=== PATIENT | male | born 1945 | race Caucasian/White ===

== ENCOUNTER 2018-06-23 16:46 | Inpatient (IN) ==
--- NOTE | 2018-06-23 18:07 | XR ---
EXAM DATE: 06/23/2018 6:02 PM EST AGE/SEX: 72 years / Male INDICATIONS: Congestive heart failure. CLINICAL DATA: This is the patient's initial encounter. Patient reports that signs and symptoms have been present for 1 day and indicates a pain score of Nonresponsive. MEDICAL/SURGICAL HISTORY: Congestive heart failure. . Pacemaker. COMPARISON: . FINDINGS: There is a pacing device seen in the left chest. The heart size is within normal limits. The lungs ar e grossly clear. CONCLUSION: No acute cardiopulmonary process. Electronically signed by: Mundo Naranjo MD 06/23/2018 6:05 PM EST
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
[2018-06-23 18:42] LABS: Baso % (Auto) 0.4 % (0.0-2.0); Eos # (Auto) 0.1 th/mm3 (0.0-0.4); Eos % (Auto) 1.5 % (0.0-4.0); Hematocrit 42.6 % (39.0-51.0); Hemoglobin 14.5 gm/dL (13.0-17.0); Lymph # (Auto) 0.7 th/mm3 (1.0-4.8); Lymph % (Auto) 7.3 % (9.0-44.0); Mean Corpuscular Hemoglobin 31.8 pg (27.0-34.0); Mean Corpuscular Volume 93.6 fL (80.0-100.0); Mean Platelet Volume 9.3 fL (7.0-11.0); Mono # (Auto) 1.1 th/mm3 (0.0-0.9); Mono % (Auto) 11.9 % (0.0-8.0); Neut # (Auto) 7.2 th/mm3 (1.8-7.7); Neut % (Auto) 78.9 % (16.0-70.0); Platelet Count 245 th/mm3 (150-450); Red Blood Count 4.55 mil/mm3 (4.50-5.90); White Blood Count 9.2 th/mm3 (4.0-11.0)
[2018-06-23 18:48] LABS: Amphetamine Screen,Urine Neg (Neg); Barbiturate Screen,Urine Neg (Neg); Cannabinoid Screen,Urine Neg (Neg); Cocaine Screen,Urine Neg (Neg)
[2018-06-23 19:03] LABS: Anion Gap 6 meq/L (5-15); Aspartate Aminotransferase 31 U/L (15-37); Blood Urea Nitrogen 24 mg/dL (7-18); Calcium 9.1 mg/dL (8.5-10.1); Carbon Dioxide 28.7 meq/L (21.0-32.0); Chloride 104 meq/L (98-107); Glomerular Filtration Rate 69 mL/min (>89); Glucose,Random 88 mg/dL (74-106); Magnesium 1.6 mg/dL (1.5-2.5); Potassium 4.4 meq/L (3.5-5.1); Sodium 139 meq/L (136-145)
[2018-06-23 19:04] LABS: Alanine Aminotransferase 29 U/L (12-78)
[2018-06-23 19:12] LABS: Opiate Screen,Urine Neg (Neg)
[2018-06-23 19:18] LABS: Alkaline Phosphatase 65 U/L (45-117); Digoxin 0.9 ng/mL (0.8-2.0); Total Protein 7.8 g/dL (6.4-8.2)
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
--- NOTE | 2018-06-24 14:01 | ECG ---
Date Performed: 06/23/2018 Time Performed: 18:11:23 PTAGE: 72 years EKG: Extremely poor quality tracing to the point that the underlying rhythm cannot be determined but it is possibly atrial fibrillation. The patient has marked right axis deviation and this may be limb lead reversal but i cannot exclude an anterolateral wall NE that is possibly acute as there is r esidual ST elevation. Repeat tracing and clinical correlation will be extremely important again to sp ecifically exclude acute ST segment elevation infarction ABNORMAL ECG NO PREVIOUS TRACING DOCTOR: Olga Ascencio Interpretating Date/Time 06/24/2018 14:00:53
[2018-06-24 15:19] LABS: Bacteria,Urine Few /hpf; Bilirubin,Urine Negative (Negative); Calcium Oxalate Crystals,Urine Occasional /hpf; Clarity,Urine Hazy (Clear); Color,Urine Amber (Yellw/Straw); Glucose,Urine (UA) Negative (Negative); Leukocyte Esterase,Urine Negative (Negative); Mucus,Urine Few /lpf (Occasional); Nitrite,Urine Negative (Negative); Specific Gravity,Urine 1.023 (1.002-1.035); Squamous Epithelial Cell,Urine <1 /hpf (0-5)
[2018-06-24] MEDS ORDERED: Haloperidol 5 MG Tablet PO ONE (19:44)
[2018-06-24] MEDS: Digoxin 125 MCG Tablet PO SCH (20:36)
[2018-06-24] MEDS: Rivaroxaban 20 MG Tablet PO SCH (20:37)
[2018-06-24] MEDS: Budesonide-Formoterol 160/4.5 MCG 6 GM Inhaler INH SCH (21:58)
[2018-06-25] MEDS: Rivaroxaban 20 MG Tablet PO SCH (08:18)
[2018-06-25] MEDS: Digoxin 125 MCG Tablet PO SCH (08:18)
[2018-06-25] MEDS: Budesonide-Formoterol 160/4.5 MCG 6 GM Inhaler INH SCH ×2 (08:18→21:58)
[2018-06-25] MEDS: LORazepam 0.5 MG Tablet PO PRN (14:21)
[2018-06-25] MEDS: QUEtiapine 25 MG Tablet PO SCH (14:21)
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
[2018-06-26 07:48] LABS: Baso % (Auto) 0.6 % (0.0-2.0); Eos # (Auto) 0.4 th/mm3 (0.0-0.4); Eos % (Auto) 5.6 % (0.0-4.0); Hematocrit 41.5 % (39.0-51.0); Hemoglobin 13.8 gm/dL (13.0-17.0); Lymph # (Auto) 0.7 th/mm3 (1.0-4.8); Lymph % (Auto) 9.9 % (9.0-44.0); Mean Corpuscular HGB Conc 33.3 % (32.0-36.0); Mean Corpuscular Hemoglobin 30.8 pg (27.0-34.0); Mean Corpuscular Volume 92.5 fL (80.0-100.0); Mean Platelet Volume 8.6 fL (7.0-11.0); Mono # (Auto) 0.9 th/mm3 (0.0-0.9); Mono % (Auto) 13.1 % (0.0-8.0); Neut # (Auto) 5.1 th/mm3 (1.8-7.7); Neut % (Auto) 70.8 % (16.0-70.0); Platelet Count 233 th/mm3 (150-450); Red Blood Count 4.48 mil/mm3 (4.50-5.90); Red Cell Distribution Width 13.9 % (11.6-17.2); White Blood Count 7.2 th/mm3 (4.0-11.0)
--- NOTE | 2018-06-26 08:00 | P.PNPSY ---
Subjective Remarks: Patient seen for follow-up, chart reviewed. Discussion with nursing staff reported that patient was upset yesterday because he wanted to walk by himself which started his agitation and receive ETO yesterday afternoon but was in good behavioral control thereafter. Patient slept last night. Patient was found lying hospital bed but was awake and able to engage in interview stating he is feeling "fine" continues to be confused alert and oriented only to person. Patient denies any physical complaints at this time, reports eating and drinking well but did report having some loose stools yesterday. Patient denies any depressed mood denies any SI or HI at this time. Review of Systems All other systems reviewed negative except as stated in HPI Mental Status Examination Appearance: Appropriate Consciousness: Alert Orientation: Person Motor Activity: Other (Only in bed) Speech: Other (Significant problems with word finding) Language: Other Fund of Knowledge: Poor (Diminished) Attention and Concentration: Inadequate Memory: Impaired Mood: Appropriate Affect: Appropriate Thought Process & Associations: Other ([place]) Thought Content: Appropriate Hallucination Type: None Delusion Type: None Suicidal Ideation: No Suicidal Plan: No Suicidal Intention: No Homicidal Ideation: No Homicidal Plan: No Homicidal Intention: No Insight: Poor Judgment: Poor Assessment and Plan - Assessment (1) Dementia with behavioral disturbance Code(s): F03.91 - Unspecified dementia with behavioral disturbance Status: Acute - Plan Plan: Patient continued with concrete responses, continue with baseline confusion secondary to neurocognitive deficits. Patient did have one episode of agitation yesterday afternoon after wanting to be able to walk by himself without assistance but was managed with ETO and no behavioral disturbances since. We will continue current treatment. We will continue to monitor mood and behavior. Discharge planning in progress. Justification for Continued Inpatient Stay: At risk of further decompensation at lower level care. (1) Dementia with behavioral disturbance Qualifiers: Dementia type: unspecified type Qualified Code(s): F03.91 - Unspecified dementia with behavioral disturbance
[2018-06-26] MEDS: QUEtiapine 25 MG Tablet PO SCH ×2 (08:10→11:47)
[2018-06-26] MEDS: Budesonide-Formoterol 160/4.5 MCG 6 GM Inhaler INH SCH ×2 (08:10→20:19)
[2018-06-26] MEDS: Rivaroxaban 20 MG Tablet PO SCH (08:10)
[2018-06-26] MEDS: Digoxin 125 MCG Tablet PO SCH (08:10)
[2018-06-26 08:23] LABS: Alanine Aminotransferase 25 U/L (12-78); Albumin 2.5 g/dL (3.4-5.0); Anion Gap 7 meq/L (5-15); Aspartate Aminotransferase 25 U/L (15-37); Blood Urea Nitrogen 16 mg/dL (7-18); Calcium 8.8 mg/dL (8.5-10.1); Carbon Dioxide 30.2 meq/L (21.0-32.0); Chloride 106 meq/L (98-107); Glomerular Filtration Rate Greater Than 89 mL/min (>89); Glucose,Random 79 mg/dL (74-106); Sodium 143 meq/L (136-145)
[2018-06-26 08:36] LABS: Alkaline Phosphatase 54 U/L (45-117); Digoxin 0.7 ng/mL (0.8-2.0); Total Protein 6.8 g/dL (6.4-8.2)
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
[2018-06-27] MEDS: Rivaroxaban 20 MG Tablet PO SCH (09:01)
[2018-06-27] MEDS: Digoxin 125 MCG Tablet PO SCH (09:01)
[2018-06-27] MEDS: QUEtiapine 25 MG Tablet PO SCH ×2 (10:07→13:33)
[2018-06-27] MEDS: Budesonide-Formoterol 160/4.5 MCG 6 GM Inhaler INH SCH ×2 (10:07→20:26)
--- NOTE | 2018-06-27 21:09 | P.PNPSY ---
Subjective Remarks: Patient seen for follow-up, chart reviewed. Discussion with nursing staff reported that patient behavior disturbances, had a compliant medications, patient was found lying in hospital bed B, cooperative. Casual clothing. He states that he "do not think I slept too confused but is able to recall that 3 years ago he had a left hip fracture he states that he constantly has left hip pain. Patient reports his mood is "okay", requests assistance to shave today. Review of Systems All other systems reviewed negative except as stated in HPI Mental Status Examination Appearance: Appropriate Consciousness: Alert Orientation: Person Motor Activity: Other (Only in bed) Speech: Other (Significant problems with word finding) Language: Other Fund of Knowledge: Poor (Diminished) Attention and Concentration: Inadequate Memory: Impaired Mood: Appropriate Affect: Appropriate Thought Process & Associations: Other ([place]) Thought Content: Appropriate Hallucination Type: None Delusion Type: None Suicidal Ideation: No Suicidal Plan: No Suicidal Intention: No Homicidal Ideation: No Homicidal Plan: No Homicidal Intention: No Insight: Poor Judgment: Poor Assessment and Plan - Assessment (1) Dementia with behavioral disturbance Code(s): F03.91 - Unspecified dementia with behavioral disturbance Status: Acute - Plan Plan: Patient is tolerating medications well, no behavioral disturbances since admission cooperative with staff. Patient continues with baseline confusion, is reporting chronic left hip pain secondary from left hip fracture years ago. Continue current treatment. Continue to monitor mood and behavior. Discharge planning in progress. Justification for Continued Inpatient Stay: At risk of further decompensation at lower level care. (1) Dementia with behavioral disturbance Qualifiers: Dementia type: unspecified type Qualified Code(s): F03.91 - Unspecified dementia with behavioral disturbance
[2018-06-28] MEDS: Digoxin 125 MCG Tablet PO SCH (08:14)
[2018-06-28] MEDS: Rivaroxaban 20 MG Tablet PO SCH (08:14)
[2018-06-28] MEDS: QUEtiapine 25 MG Tablet PO SCH ×2 (08:14→14:33)
[2018-06-28] MEDS: Acetaminophen 325 MG Tablet PO PRN (08:16)
--- NOTE | 2018-06-28 08:53 | P.PNIM ---
Subjective Interval history: Follow-up altered mental status, dementia, A. fib, heart failure, COPD, and generalized weakness. Patient seen and examined sitting on the side of the bed, eating breakfast. Patient complaint of pain on his left leg, left from left hip going down to his knee. Patient states that he had surgery in both of his knee. Patient states that he cannot walk fast due to the pain on left hip. States that Tylenol helps. Patient denies any headache or dizziness, denies any abdominal pain, nausea, vomiting, diarrhea or constipation. Patient denies any fever or chills. Nurse reported no acute events overnight. Physical Exam Vital signs: Vital Signs 06/27/18 18:00 06/27/18 21:06 06/28/18 05:22 Temperature 97.8 F 97.6 F Pulse Rate 55 L 87 Respiratory Rate 15 21 17 Blood Pressure 107/59 L 115/70 Pulse Oximetry 96 95 Intake & Output 06/27/18 06/28/18 06/28/18 18:59 06:59 18:59 Intake Total 120 / 120 60 / 60 Balance 120 / 120 60 / 60 Intake: Oral 120 / 120 60 / 60 Other: # Voids 2 Date of Last Bowel Movement 06/26/18 06/26/18 Narrative: GENERAL: Well-developed, well-nourished, adult male, sitting in the side of bed, in no apparent distress SKIN: Warm and dry. Bilateral knee surgical incision scar HEAD: Atraumatic. Normocephalic. EYES: Pupils equal and round. No scleral icterus. No injection or drainage. ENT: No nasal bleeding or discharge. Mucous membranes pink and moist. NECK: Trachea midline. No JVD. CARDIOVASCULAR: Regular rate and rhythm. Left upper chest pacemaker/ defibrillator in place RESPIRATORY: No accessory muscle use. Clear to auscultation. Breath sounds equal bilaterally. GASTROINTESTINAL: Abdomen flat, soft, non-tender, nondistended. Hepatic and splenic margins not palpable. MUSCULOSKELETAL: Extremities without clubbing, cyanosis, or edema. No obvious deformities. NEUROLOGICAL: Awake and alert and oriented x1. No obvious cranial nerve deficits. Generalized weakness moving all 4 extremities. Normal speech. PSYCHIATRIC: Flat mood and affect; insight and judgment poor. Results - Labs CBC & Chem 7: 06/26/18 07:27 06/26/18 07:27 Assessment and Plan - Assessment (1) Heart failure Code(s): I50.9 - Heart failure, unspecified Status: Acute (2) Dementia with behavioral disturbance Code(s): F03.91 - Unspecified dementia with behavioral disturbance Status: Acute (3) Hypertension Code(s): I10 - Essential (primary) hypertension Status: Acute (4) COPD (chronic obstructive pulmonary disease) Code(s): J44.9 - Chronic obstructive pulmonary disease, unspecified Status: Acute (5) Atherosclerotic heart disease Code(s): I25.10 - Atherosclerotic heart disease of [place] coronary artery without angina pectoris Status: Acute - Plan This patient is a 72 years old male with past medical history of dementia A. fib, altered mental status, atherosclerotic heart disease, COPD, heart failure, hypertension, and muscle weakness. Patient presented to the emergency room under a Ordonez act and was released at the ED. Patient was admitted to the psychiatric unit for treatment and management. Altered mental Status Cognitive impairment -Chest x-ray negative -Urinalysis negative -Likely related to dementia with behavioral disturbance -TSH 1.36 -monitor mental status Dementia with behavioral disturbance Combative Unspecified dementia with behavioral disturbance, Acute on chronic -likely due to failure in taking medications/ family request to cut down on doses -Management with Psychiatric team -continue Lexapro and Seroquel, and prn Ativan -Patient is calm and cooperative, monitor mental status Atherosclerotic heart disease, without angina pectoris Heart failure Atrial fibrillation Heart failure, unspecified, Acute on chronic -No chest pain no shortness of breath -Pacemaker/defibrillator in place -Continue digoxin, losartan, metoprolol, and Xarelto -Monitor blood pressure and heart rate -Monitor CBC, dig level and BMP -Rate controlled, dig level 0.7, monitor Hypertension Essential (primary) hypertension, Acute on chronic -Blood pressure labile, in the low side -Continue losartan , decrease metoprolol dose -Add hold parameters -Monitor blood pressure, adjust medication as needed COPD (chronic obstructive pulmonary disease) Chronic obstructive pulmonary disease, unspecified -No shortness of breath no wheezes -Continue DuoNeb treatment -Monitor respiratory status Generalized weakness Hypoalbuminemia -Consult PT rehab for eval and treat -Add Ensure twice daily -Encourage increase p.o. intake Osteoarthritis History of bilateral knee surgery Left hip pain -Obtain left hip x-ray, rule out acute process -Add as needed Tylenol for pain -Add naproxen times 5 days -Physical therapy/rehab per protocol DVT prophylaxis: Continue Xarelto Thank you for your consultation, we will continue to follow patient accordingly. Code Status: full code Discussed Condition With: patient and nurse (2) Dementia with behavioral disturbance Qualifiers: Dementia type: unspecified type Qualified Code(s): F03.91 - Unspecified dementia with behavioral disturbance
--- NOTE | 2018-06-28 10:34 | XR ---
EXAM DATE: 06/28/2018 10:24 AM EST AGE/SEX: 72 years / Male INDICATIONS: Hip pain. CLINICAL DATA: This is the patient's initial encounter. Patient reports that signs and symptoms have been present for > 1 year and indicates a pain score of 7/10. MEDICAL/SURGICAL HISTORY: . Prior fracture. . Hip replacement, bilateral. COMPARISON: No prior exams available for comparison. FINDINGS: There is a short intramedullary ivan seen at the proximal left femur. There is a screw seen extending through the intramedullary ivan and into the left femoral head and neck region. This appears to extend through the medial aspect of the femoral head. The femoral head appears significantly reduced in siz e. There is chronic degenerative change. There is hypertrophic change seen around the hip joint espec ially around the lesser trochanter. An acute fracture is not seen. There is narrowing of the hip join t superiorly and medially. 3 metallic densities are seen over the prostate presumably related to beatriz er seeds. Vascular calcifications are seen. CONCLUSION: Severe arthritic change at the left hip joint with remodeling and reduction size of the femoral head. The patient has underwent ORIF with a compression screw seen through the femoral neck and head. This appears to extend through the medial cortex of the femoral head. Electronically signed by: Mundo Naranjo MD 06/28/2018 10:32 AM EST
--- NOTE | 2018-06-28 12:02 | P.PNPSY ---
Subjective Remarks: Patient seen and examined in weekend coverage for Dr. Trevino. Chart reviewed. Case discussed with nursing staff who reports patient has presented no behavioral problem. On my examination today, the patient is wandering around with a diaper. He is oriented to person only. He denies any SI, HI or AVH. No side effects from medications. Complains of left hip pain, which nurse assures me is chronic. No other physical complaints. Vital Signs Temp Pulse Resp BP Pulse Ox 06/28/18 05:22 97.6 F 87 17 115/70 95 06/27/18 21:06 21 06/27/18 18:00 97.8 F 55 L 15 107/59 L 96 Intake and Output 06/27/18 06/28/18 06/28/18 22:59 06:59 14:59 Intake Total 60 / 60 0 / 0 Balance 60 / 60 0 / 0 Intake: Oral 60 / 60 0 / 0 Other: # Voids 2 Date of Last Bowel Movement 06/26/18 Labs reviewed. Review of Systems unobtainable due to mental condition Mental Status Examination Appearance: Appropriate Consciousness: Alert Orientation: Person Motor Activity: Other (No motor abnormalities noted) Speech: Unremarkable Language: Other (Word finding difficulties. Poverty of speech) Fund of Knowledge: Poor Attention and Concentration: Inadequate Memory: Impaired Mood: Appropriate Affect: Appropriate Thought Process & Associations: Other ([place]) Thought Content: Other (Poverty of thought) Hallucination Type: None Delusion Type: None Suicidal Ideation: No Suicidal Plan: No Suicidal Intention: No Homicidal Ideation: No Homicidal Plan: No Homicidal Intention: No Insight: Poor Judgment: Poor Assessment and Plan - Assessment (1) Dementia with behavioral disturbance Code(s): F03.91 - Unspecified dementia with behavioral disturbance Status: Acute - Plan Plan: Continue Seroquel and Lexapro as ordered. Continue to monitor on the inpatient unit. Hospitalist input noted and appreciated. Continue other medications and care as ordered. Justification for Continued Inpatient Stay: Risk for decompensation Discharge Planning: Per Dr. Trevino (1) Dementia with behavioral disturbance Qualifiers: Dementia type: unspecified type Qualified Code(s): F03.91 - Unspecified dementia with behavioral disturbance
[2018-06-28] MEDS: Budesonide-Formoterol 160/4.5 MCG 6 GM Inhaler INH SCH ×2 (14:33→20:11)
[2018-06-29] MEDS: Digoxin 125 MCG Tablet PO SCH (08:01)
[2018-06-29] MEDS: Rivaroxaban 20 MG Tablet PO SCH (08:02)
[2018-06-29] MEDS: Budesonide-Formoterol 160/4.5 MCG 6 GM Inhaler INH SCH ×2 (08:03→20:36)
[2018-06-29] MEDS: QUEtiapine 25 MG Tablet PO SCH ×2 (08:05→13:08)
--- NOTE | 2018-06-29 09:36 | P.PNIM ---
Subjective Interval history: Follow-up altered mental status, dementia, A. fib, heart failure, COPD, and generalized weakness. Patient seen and examined sitting on the side of the bed, nurse at bedside. Patient answers to questions with flights of thoughts. Some conversations does not make sense. Patient denies any pain or shortness of breath, denies any headache or dizziness, denies any abdominal pain, nausea, vomiting, diarrhea or constipation not make sense. However patient complaint no bowel movement today or yesterday. Discussed with nursing to give stool softeners. Patient denies any fever or chills. Nurse denies any acute complaints or issues overnight. Physical Exam Vital signs: Vital Signs 06/28/18 19:16 06/29/18 06:00 Temperature 98.7 F 98.4 F Pulse Rate 75 55 L Respiratory Rate 18 18 Blood Pressure 92/66 L 99/63 L Pulse Oximetry 94 L 93 L Intake & Output 06/28/18 06/29/18 06/29/18 18:59 06:59 18:59 Intake Total 360 / 360 240 / 240 Balance 360 / 360 240 / 240 Intake: Oral 360 / 360 240 / 240 Other: # Voids 3 4 Date of Last Bowel Movement 06/28/18 06/28/18 Narrative: GENERAL: Well-developed, well-nourished, adult male, sitting in the side of bed, in no apparent distress SKIN: Warm and dry. Bilateral knee surgical incision scar, left hip surgical scar healed well HEAD: Atraumatic. Normocephalic. EYES: Pupils equal and round. No scleral icterus. No injection or drainage. ENT: No nasal bleeding or discharge. Mucous membranes pink and moist. NECK: Trachea midline. No JVD. CARDIOVASCULAR: Regular rate and rhythm. Left upper chest pacemaker/ defibrillator in place RESPIRATORY: No accessory muscle use. Clear to auscultation. Breath sounds equal bilaterally. GASTROINTESTINAL: Abdomen flat, soft, non-tender, nondistended. Hepatic and splenic margins not palpable. MUSCULOSKELETAL: Extremities without clubbing, cyanosis, or edema. No obvious deformities. NEUROLOGICAL: Awake and alert and oriented x1. No obvious cranial nerve deficits. Generalized weakness moving all 4 extremities. Normal speech. PSYCHIATRIC: Flat mood and affect; insight and judgment poor. Results - Labs CBC & Chem 7: 06/26/18 07:27 06/26/18 07:27 - Imaging Impressions Hip X-Ray 06/28/18 00:00 CONCLUSION: Severe arthritic change at the left hip joint with remodeling and reduction size of the femoral head. The patient has underwent ORIF with a compression screw seen through the femoral neck and head. This appears to extend through the medial cortex of the femoral head. Assessment and Plan - Assessment (1) Heart failure Code(s): I50.9 - Heart failure, unspecified Status: Acute (2) Dementia with behavioral disturbance Code(s): F03.91 - Unspecified dementia with behavioral disturbance Status: Acute (3) Hypertension Code(s): I10 - Essential (primary) hypertension Status: Acute (4) COPD (chronic obstructive pulmonary disease) Code(s): J44.9 - Chronic obstructive pulmonary disease, unspecified Status: Acute (5) Atherosclerotic heart disease Code(s): I25.10 - Atherosclerotic heart disease of [place] coronary artery without angina pectoris Status: Acute - Plan This patient is a 72 years old male with past medical history of dementia A. fib, altered mental status, atherosclerotic heart disease, COPD, heart failure, hypertension, and muscle weakness. Patient presented to the emergency room under a Ordonez act and was released at the ED. Patient was admitted to the psychiatric unit for treatment and management. Altered mental Status Cognitive impairment -Chest x-ray negative -Urinalysis negative -Likely related to dementia with behavioral disturbance -TSH 1.36 -monitor mental status Dementia with behavioral disturbance Combative Unspecified dementia with behavioral disturbance, Acute on chronic -likely due to failure in taking medications/ family request to cut down on doses -Management with Psychiatric team -continue Lexapro and Seroquel, and prn Ativan -Patient is calm and cooperative, monitor mental status Atherosclerotic heart disease, without angina pectoris Heart failure Atrial fibrillation Heart failure, unspecified, Acute on chronic -No chest pain no shortness of breath -Pacemaker/defibrillator in place -Continue digoxin, losartan, metoprolol, and Xarelto -Monitor blood pressure and heart rate -Monitor CBC, dig level and BMP -Rate controlled, dig level 0.7, monitor Hypertension Essential (primary) hypertension, Acute on chronic -Blood pressure labile, in the low side -Continue losartan , decrease metoprolol dose again with hold parameters -Add hold parameters -Monitor blood pressure, adjust medication as needed COPD (chronic obstructive pulmonary disease) Chronic obstructive pulmonary disease, unspecified -No shortness of breath no wheezes -Continue DuoNeb treatment -Monitor respiratory status Generalized weakness Hypoalbuminemia -Consult PT rehab for eval and treat -Add Ensure twice daily -Encourage increase p.o. intake Osteoarthritis History of bilateral knee surgery Left hip pain -Obtain left hip x-ray, rule out acute process -Add as needed Tylenol for pain -Did not order naproxen due to anticoagulation, and risk of GI bleed, will use Tylenol at this time -Physical therapy/rehab per protocol Constipation -Add stool softener, senna twice daily -Add PRN laxatives -Encourage increase fluid intake -Monitor response DVT prophylaxis: Continue Xarelto Thank you for your consultation, we will continue to follow patient accordingly. Code Status: Full code Discussed Condition With: Patient and nurse (2) Dementia with behavioral disturbance Qualifiers: Dementia type: unspecified type Qualified Code(s): F03.91 - Unspecified dementia with behavioral disturbance
--- NOTE | 2018-06-29 12:31 | P.PNPSY ---
Subjective Remarks: Patient seen and examined with nurse in weekend coverage for Dr. Trevino. Chart reviewed. Case discussed with nursing staff who reports patient has had diarrhea and has been difficult to redirect. Diarrhea may be related to treatment for constipation, but I have asked nurse to send stool for C. difficile to rule this out. On my examination today, the patient is irritable. He is ambulating around the unit with his walker. He remains confused. Speech is rambling. No evident medication side effects. No physical complaints. Vital Signs Temp Pulse Resp BP Pulse Ox 06/29/18 06:00 98.4 F 55 L 18 99/63 L 93 L 06/28/18 19:16 98.7 F 75 18 92/66 L 94 L Intake and Output 06/28/18 06/29/18 06/29/18 22:59 06:59 14:59 Intake Total 600 / 600 Balance 600 / 600 Intake: Oral 600 / 600 Other: # Voids 2 4 Date of Last Bowel Movement 06/28/18 06/28/18 Labs reviewed Review of Systems unobtainable due to mental condition Mental Status Examination Appearance: Appropriate Consciousness: Alert Orientation: Person Motor Activity: Other (No abnormal motor movements noted) Speech: Unremarkable Language: Other (Word finding difficulties. Poverty of speech) Fund of Knowledge: Poor Attention and Concentration: Inadequate Memory: Impaired Mood: Irritable Affect: Irritable Thought Process & Associations: Other ([place]) Thought Content: Other (Poverty of thought) Hallucination Type: None Delusion Type: None Suicidal Ideation: No Homicidal Ideation: No Insight: Poor Judgment: Poor Assessment and Plan - Assessment (1) Dementia with behavioral disturbance Code(s): F03.91 - Unspecified dementia with behavioral disturbance Status: Acute - Plan Plan: To consider further titration of patient's Seroquel to target irritability in the setting of dementia. I am loath to do so now however because patient's blood pressure is low, and I do not wish to precipitate syncope or fall. Continue to monitor on inpatient unit. Hospitalist input noted and appreciated. Follow-up C. difficile PCR. Continue other medications and care as ordered. Justification for Continued Inpatient Stay: Risk for decompensation and less restrictive environment. Discharge Planning: Per Dr. Trevino (1) Dementia with behavioral disturbance Qualifiers: Dementia type: unspecified type Qualified Code(s): F03.91 - Unspecified dementia with behavioral disturbance
[2018-06-29] MEDS: Senna/Docusate Sodium 8.6/50 MG Tablet PO SCH (13:07)
[2018-06-29] MEDS ORDERED: Haloperidol Inj 5 MG/ML Ampul IM STA (13:24)
[2018-06-29] MEDS: Acetaminophen 325 MG Tablet PO PRN (20:35)
[2018-06-30] MEDS: Rivaroxaban 20 MG Tablet PO SCH (08:02)
[2018-06-30] MEDS: Digoxin 125 MCG Tablet PO SCH (08:03)
[2018-06-30] MEDS: Senna/Docusate Sodium 8.6/50 MG Tablet PO SCH (08:03)
[2018-06-30] MEDS: QUEtiapine 25 MG Tablet PO SCH ×2 (08:06→13:01)
--- NOTE | 2018-06-30 08:52 | P.PNIM ---
Subjective Interval history: Follow-up altered mental status, dementia, A. fib, heart failure, COPD, and generalized weakness. Patient seen and examined sitting in the bed, denies any pain, stated he is not moving. c/o Pain on the legs only when walking. Patient stated sleep well last night and ate good breakfast. Patient denies any headache or dizziness, denies any chest pain or SOB, denies any abdominal pain, nausea, vomiting, diarrhea or constipation. Stated had good BM. Nurse denies any acute issues overnight. Physical Exam Vital signs: Vital Signs 06/29/18 18:22 06/30/18 06:00 Temperature 97.6 F 97.9 F Pulse Rate 51 L Respiratory Rate 20 16 Blood Pressure 99/54 L 115/71 Pulse Oximetry 93 L 93 L Intake & Output 06/29/18 06/30/18 06/30/18 18:59 06:59 18:59 Intake Total 840 / 840 120 / 120 480 / 480 Balance 840 / 840 120 / 120 480 / 480 Weight 76.8 kg Intake: Oral 840 / 840 120 / 120 480 / 480 Other: # Voids 2 Date of Last Bowel Movement 06/28/18 06/28/18 Narrative: GENERAL: Well-developed, well-nourished, adult male, sitting in the side of bed, in no apparent distress SKIN: Warm and dry. Bilateral knee surgical incision scar, left hip surgical scar healed well HEAD: Atraumatic. Normocephalic. EYES: Pupils equal and round. No scleral icterus. No injection or drainage. ENT: No nasal bleeding or discharge. Mucous membranes pink and moist. NECK: Trachea midline. No JVD. CARDIOVASCULAR: Regular rate and rhythm. Left upper chest pacemaker/ defibrillator in place RESPIRATORY: No accessory muscle use. Clear to auscultation. Breath sounds equal bilaterally. GASTROINTESTINAL: Abdomen flat, soft, non-tender, nondistended. Hepatic and splenic margins not palpable. MUSCULOSKELETAL: Extremities without clubbing, cyanosis, or edema. No obvious deformities. NEUROLOGICAL: Awake and alert and oriented x1. No obvious cranial nerve deficits. Generalized weakness moving all 4 extremities. Normal speech. PSYCHIATRIC: Flat mood and affect; insight and judgment poor. Results - Labs CBC & Chem 7: 06/26/18 07:27 06/26/18 07:27 Laboratory Results - last 24 hr 06/29/18 10:35 Stl C.difficile DNA Amp Negative St C. diff Tox Epid 027 Negative Assessment and Plan - Assessment (1) Heart failure Code(s): I50.9 - Heart failure, unspecified Status: Acute (2) Dementia with behavioral disturbance Code(s): F03.91 - Unspecified dementia with behavioral disturbance Status: Acute (3) Hypertension Code(s): I10 - Essential (primary) hypertension Status: Acute (4) COPD (chronic obstructive pulmonary disease) Code(s): J44.9 - Chronic obstructive pulmonary disease, unspecified Status: Acute (5) Atherosclerotic heart disease Code(s): I25.10 - Atherosclerotic heart disease of [place] coronary artery without angina pectoris Status: Acute - Plan This patient is a 72 years old male with past medical history of dementia A. fib, altered mental status, atherosclerotic heart disease, COPD, heart failure, hypertension, and muscle weakness. Patient presented to the emergency room under a Ordonez act and was released at the ED. Patient was admitted to the psychiatric unit for treatment and management. Altered mental Status Cognitive impairment -Chest x-ray negative -Urinalysis negative -Likely related to dementia with behavioral disturbance -TSH 1.36 -monitor mental status, improving Dementia with behavioral disturbance Combative Unspecified dementia with behavioral disturbance, Acute on chronic -likely due to failure in taking medications -Management with Psychiatric team -continue Lexapro and Seroquel, and prn Ativan -Patient is calm and cooperative, monitor mental status Atherosclerotic heart disease, without angina pectoris Heart failure Atrial fibrillation Heart failure, unspecified, Acute on chronic -No chest pain no shortness of breath -Pacemaker/defibrillator in place -Continue digoxin, losartan, metoprolol, and Xarelto -Monitor blood pressure and heart rate -Monitor CBC, dig level and BMP -Rate controlled, dig level 0.7, monitor Hypertension Essential (primary) hypertension, Acute on chronic -Blood pressure labile, in the low side -Continue losartan , decrease metoprolol dose again with hold parameters -Add hold parameters -Monitor blood pressure, adjust medication as needed COPD (chronic obstructive pulmonary disease) Chronic obstructive pulmonary disease, unspecified -No shortness of breath no wheezes -Continue DuoNeb treatment -Monitor respiratory status Generalized weakness Hypoalbuminemia -Consult PT rehab for eval and treat -Add Ensure twice daily -Encourage increase p.o. intake Osteoarthritis History of bilateral knee surgery Left hip pain -Obtain left hip x-ray, rule out acute process -Add as needed Tylenol for pain -Did not order naproxen due to anticoagulation, and risk of GI bleed, will use Tylenol at this time -Physical therapy/rehab per protocol Constipation -Add stool softener, senna twice daily -Add PRN laxatives -Encourage increase fluid intake -Monitor response DVT prophylaxis: Continue Xarelto Patient medically clear for discharge Thank you for your consultation. Code Status: full code Discussed Condition With: patient and nurse Dr Trevino (2) Dementia with behavioral disturbance Qualifiers: Dementia type: unspecified type Qualified Code(s): F03.91 - Unspecified dementia with behavioral disturbance
[2018-06-30] MEDS: Budesonide-Formoterol 160/4.5 MCG 6 GM Inhaler INH SCH ×2 (09:55→20:38)
--- NOTE | 2018-06-30 12:08 | P.TTN ---
- Patient Problems Problems: 1. Discharge planning 2. Medication compliance 3. Knowledge deficit 4. Lack of coping skills - Progress Toward Goals Provider Present: Dr. Marie Trevino Provider Input: 06/30/2018; Patient is stable on current medication, pending placement Nurse(s) Present: RN Nurse Input: 06/30/2018; patient is eating meals with coaching, and taking his medication Psychiatric Counselors Present: Lorraine Ko [facility] Psychiatric Therapist Input: 06/30/2018; patient dc plan is to be dc to a custodial to continue Rehab Group Spec/RT/OT/HERNANDEZ Present: Robby Ramirez OT Group Spec/RT/OT/HERNANDEZ Input: 06/30/2018; Patient attends some activities - Documentation Teaching Recipient: Patient
--- NOTE | 2018-06-30 16:08 | P.PNPSY ---
Subjective Remarks: Patient seen for follow up; chart reviewed. Discussion with nursing staff reported that patient eating and drinking well, compliant with medications. Patient was found sitting up in hospital bed noted, cooperative. Patient continues to be confused at times, stating his mood has been "okay" but did recall visit with his daughter recently which she states went well. Patient denies any physical complaints at this time. Review of Systems All other systems reviewed negative except as stated in HPI Mental Status Examination Appearance: Appropriate Consciousness: Alert Orientation: Person Motor Activity: Other (No abnormal motor movements noted) Speech: Unremarkable Language: Other (Word finding difficulties. Poverty of speech) Fund of Knowledge: Poor Attention and Concentration: Inadequate Memory: Impaired Mood: Appropriate Affect: Appropriate Thought Process & Associations: Linear, Other ([place]) Thought Content: Other (Poverty of thought) Hallucination Type: None Delusion Type: None Suicidal Ideation: No Suicidal Plan: No Suicidal Intention: No Homicidal Ideation: No Homicidal Plan: No Homicidal Intention: No Insight: Poor Judgment: Poor Assessment and Plan - Assessment (1) Dementia with behavioral disturbance Code(s): F03.91 - Unspecified dementia with behavioral disturbance Status: Acute - Plan Plan: Patient continued baseline confusion but was able to have recall of visit with daughter which went well. Patient continues with no episodes of agitation or irritability has been compliant with treatment and staff. Continue current treatment. Continue to monitor mood and behavior. Discharge planning in progress. Justification for Continued Inpatient Stay: At risk of further decompensation at lower level care. (1) Dementia with behavioral disturbance Qualifiers: Dementia type: unspecified type Qualified Code(s): F03.91 - Unspecified dementia with behavioral disturbance
[2018-06-30] MEDS: LORazepam 0.5 MG Tablet PO PRN (20:38)
[2018-06-30] MEDS: Acetaminophen 325 MG Tablet PO PRN (20:38)
[2018-07-01] MEDS: QUEtiapine 25 MG Tablet PO SCH ×2 (08:59→11:23)
[2018-07-01] MEDS: Digoxin 125 MCG Tablet PO SCH (09:00)
[2018-07-01] MEDS: Rivaroxaban 20 MG Tablet PO SCH (09:00)
[2018-07-01] MEDS: Senna/Docusate Sodium 8.6/50 MG Tablet PO SCH (09:00)
[2018-07-01] MEDS: Budesonide-Formoterol 160/4.5 MCG 6 GM Inhaler INH SCH ×2 (09:01→20:55)
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
[2018-07-01] MEDS: LORazepam 0.5 MG Tablet PO PRN (20:54)
[2018-07-01] MEDS: Acetaminophen 325 MG Tablet PO PRN (20:54)
[2018-07-02] MEDS: QUEtiapine 25 MG Tablet PO SCH (08:10)
[2018-07-02] MEDS: Acetaminophen 325 MG Tablet PO PRN (08:12)
[2018-07-02] MEDS: Senna/Docusate Sodium 8.6/50 MG Tablet PO SCH (08:13)
[2018-07-02] MEDS: Rivaroxaban 20 MG Tablet PO SCH (08:13)
[2018-07-02] MEDS: Digoxin 125 MCG Tablet PO SCH (08:13)
[2018-07-02] MEDS: Budesonide-Formoterol 160/4.5 MCG 6 GM Inhaler INH SCH (08:15)
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
== END 2018-07-02 11:00 ==
LOC: NEPD 16:46 → NEDA 06-24 18:35 → H4EA 06-24 21:13
PROVIDERS: ADMIT Student in an Organized Health Care Education/Training Program; ATTEND Student in an Organized Health Care Education/Training Program

== ENCOUNTER 2018-07-24 20:39 | Observation (INO) ==
--- NOTE | 2018-07-24 20:51 | ED ---
HPI General Chief Complaint: Altered Mental Status Stated Complaint: AMS/[place] Time Seen by Provider: 07/24/18 20:44 Source: EMS and old records reviewed Mode of arrival: EMS Limitations: altered mental status History of Present Illness HPI narrative: 72-year-old male patient with history of dementia, heart failure , hypertension, COPD, had been admitted last month for dementia with psychotic features, and [facility], and has been declining according to daughter. Daughter is concerned that he is being overmedicated. He is on several psychoactive medications. He has been more lethargic over the last few days according to daughter and more disoriented. He is not able to give me any further history. modifying Factors: None Associated Signs & Symptoms: Increased lethargy, disorientation Risk Factors: On several psychiatric medications, dementia, elderly Related Data Home Medications Medication Instructions Recorded Confirmed albuterol sulfate [Ventolin HFA] 2 puff INHALATION Q4-6H PRN 06/23/18 07/24/18 atorvastatin 40 mg PO HS 06/23/18 07/24/18 budesonide-formoterol 2 puff INHALATION BID 06/23/18 07/24/18 calcium carbonate 600 mg PO BID 06/23/18 07/24/18 cholecalciferol (vitamin D3) 400 unit PO DAILY 06/23/18 07/24/18 [Vitamin D3] digoxin 0.125 mg PO DAILY 06/23/18 07/24/18 donepezil [Aricept] 5 mg PO HS 06/23/18 07/24/18 furosemide 20 mg PO DAILY 06/23/18 07/24/18 ipratropium-albuterol 3 ml INHALATION Q6-8H PRN 06/23/18 07/24/18 losartan 25 mg PO DAILY 06/23/18 07/24/18 rivaroxaban 20 mg PO DAILY 06/23/18 07/24/18 tiotropium bromide 1 cap INHALATION DAILY 06/23/18 07/24/18 clonazepam [Klonopin] 0.5 mg PO TID 07/24/18 07/24/18 metoprolol succinate 50 mg PO DAILY 07/24/18 07/24/18 nystatin 5 ml PO QID 07/24/18 07/24/18 risperidone [Risperdal] 0.5 mg PO BID 07/24/18 07/24/18 tramadol [Ultram] 50 mg PO Q8HR PRN 07/24/18 07/24/18 Previous Rx's Medication Instructions Recorded escitalopram oxalate [Lexapro] 20 mg PO DAILY 30 Days #30 tab 07/01/18 quetiapine 12.5 mg PO BID@0900,1200 30 Days 07/01/18 #30 tab Allergies Allergy/AdvReac Type Severity Reaction Status Date / Time No Known Allergies Allergy Verified 07/24/18 20:45 Review of Systems ROS Unobtainable ROS Unobtainable: unobtainable due to mental status PMFSH History History Provided By: Patient Medical History Medical History A-fib (Acute) Altered mental status (Acute) Atherosclerotic heart disease [place] coronary artery w/angina pectoris (Acute) COPD (chronic obstructive pulmonary disease) (Acute) Cognitive communication deficit (Acute) Dementia (Acute) Heart failure (Acute) History of placement of internal cardiac defibrillator (Acute) Hypertension (Acute) Muscle weakness (Acute) Surgical History Surgical History History of total left knee replacement (Acute) History of total right knee replacement (Acute) Social History Social History Substance History: Unable to Obtain Smoking Status: Unknown if ever smoked How Often Do You Have a Drink Containing Alcohol: Unable to Obtain Recent Travel in [facility] within the Last 8 Weeks: No Recent Out of Country Travel within the Last 8 Weeks: No Exam Narrative Exam Narrative: GENERAL: Well-developed elderly male patient currently in moderate distress. Lethargic, disoriented. SKIN: Focused skin assessment warm/dry. HEAD: Atraumatic. Normocephalic. EYES: Pupils equal and round. No scleral icterus. No injection or drainage. ENT: No nasal bleeding or discharge. Mucous membranes pink and moist. NECK: Trachea midline. No JVD. CARDIOVASCULAR: Regular rate and rhythm. No murmur appreciated. RESPIRATORY: No accessory muscle use. Clear to auscultation. Breath sounds equal bilaterally. GASTROINTESTINAL: Abdomen soft, non-tender, nondistended. Hepatic and splenic margins not palpable. MUSCULOSKELETAL: No obvious deformities. No clubbing. No cyanosis. No edema. NEUROLOGICAL: Lethargic. Disoriented, not following directions, unable to fully assess. PSYCHIATRIC: Unable to assess, disoriented, lethargic, judgment poor Course Initial Documented Vital Signs Temperature 98.5 F 07/24/18 20:45 Pulse Rate 87 07/24/18 20:45 Respiratory Rate 32 H 07/24/18 20:45 Blood Pressure 126/76 07/24/18 20:45 Pulse Oximetry 91 L 07/24/18 20:45 Last Documented Vital Signs Temperature 98.5 F 07/24/18 20:45 Pulse Rate 91 H 07/24/18 20:54 Respiratory Rate 32 H 07/24/18 20:45 Blood Pressure 126/76 07/24/18 20:45 Pulse Oximetry 91 L 07/24/18 20:45 Medical Decision Making MDM Narrative Medical decision making narrative: Lab work and CAT scan of the brain did not show any signs of acute processes. Vital signs are stable in the ER. Patient is fairly disoriented in the ER. And at this point, it is quite possible he could be overmedicated. At this point, my plan would be to admit the patient for further observation and evaluation. The case was discussed with Dr. Toledo for admission. Medical Screen Exam Complete: Yes Emergency Medical Condition: Yes Differential Diagnosis Differential Diagnosis: Worsening dementia versus overmedication versus sepsis versus electrolyte abnormalities versus acute intracranial processes Lab Data Lab results reviewed: Yes I reviewed the patient's lab results. Result diagrams: 07/24/18 20:50 07/24/18 20:50 Lab Results 07/24/18 07/24/18 07/24/18 Range/Units 20:50 20:50 20:50 WBC 7.7 (4.0-11.0) th/mm3 RBC 4.63 (4.50-5.90) mil/mm3 Hgb 14.2 (13.0-17.0) gm/dL Hct 41.8 (39.0-51.0) % MCV 90.3 (80.0-100.0) fL MCH 30.6 (27.0-34.0) pg MCHC 33.9 (32.0-36.0) % RDW 14.6 (11.6-17.2) % Plt Count 265 (150-450) th/mm3 MPV 8.7 (7.0-11.0) fL Neut % (Auto) 78.0 H (16.0-70.0) % Lymph % (Auto) 8.5 L (9.0-44.0) % [place] % (Auto) 9.8 H (0.0-8.0) % Eos % (Auto) 3.4 (0.0-4.0) % Baso % (Auto) 0.3 (0.0-2.0) % Neut # (Auto) 6.0 (1.8-7.7) th/mm3 Lymph # (Auto) 0.7 L (1.0-4.8) th/mm3 [place] # (Auto) 0.8 (0.0-0.9) th/mm3 Eos # (Auto) 0.3 (0.0-0.4) th/mm3 Baso # (Auto) 0.0 (0.0-0.2) th/mm3 WBC Differential . Differential Comment Auto diff final Sodium 142 (136-145) meq/L Potassium 3.9 (3.5-5.1) meq/L Chloride 109 H (98-107) meq/L Carbon Dioxide 28.6 (21.0-32.0) meq/L Anion Gap 4 L (5-15) meq/L BUN 26 H (7-18) mg/dL Creatinine 0.87 (0.60-1.30) mg/dL Estimated GFR 86 L (>89) mL/min Random Glucose 88 (74-106) mg/dL Calcium 8.7 (8.5-10.1) mg/dL Magnesium 2.0 (1.5-2.5) mg/dL Total Bilirubin 0.8 (0.2-1.0) mg/dL AST 24 (15-37) U/L ALT 18 (12-78) U/L Alkaline Phosphatase 56 (45-117) U/L Ammonia (11-32) mcmol/L Troponin I Less than 0.02 L (0.02-0.05) ng/mL Total Protein 7.5 (6.4-8.2) g/dL Albumin 2.4 L (3.4-5.0) g/dL TSH 1.250 (0.358-3.740) uIU/mL Urine Color (Yellw/Straw) Urine Clarity (Clear) Urine pH (5.0-8.5) Ur Specific Mark [place] (1.002-1.035) Urine Protein (Neg-Trace) mg/dL Urine Glucose (UA) (Negative) mg/dL Urine Ketones (Negative) mg/dL Urine Occult Blood (Negative) Urine Nitrate (Negative) Urine Bilirubin (Negative) Urine Urobilinogen (Less than 2) mg/dL Ur Leukocyte Esterase (Negative) Urine RBC (0-3) /hpf Urine WBC (0-5) /hpf Urine Bacteria (None) /hpf Urine Mucus (Occasional) /lpf Micro UA Comment Ur Microscopic Review Urine Culture Comments 07/24/18 07/24/18 Range/Units 20:55 21:15 WBC (4.0-11.0) th/mm3 RBC (4.50-5.90) mil/mm3 Hgb (13.0-17.0) gm/dL Hct (39.0-51.0) % MCV (80.0-100.0) fL MCH (27.0-34.0) pg MCHC (32.0-36.0) % RDW (11.6-17.2) % Plt Count (150-450) th/mm3 MPV (7.0-11.0) fL Neut % (Auto) (16.0-70.0) % Lymph % (Auto) (9.0-44.0) % [place] % (Auto) (0.0-8.0) % Eos % (Auto) (0.0-4.0) % Baso % (Auto) (0.0-2.0) % Neut # (Auto) (1.8-7.7) th/mm3 Lymph # (Auto) (1.0-4.8) th/mm3 [place] # (Auto) (0.0-0.9) th/mm3 Eos # (Auto) (0.0-0.4) th/mm3 Baso # (Auto) (0.0-0.2) th/mm3 WBC Differential Differential Comment Sodium (136-145) meq/L Potassium (3.5-5.1) meq/L Chloride (98-107) meq/L Carbon Dioxide (21.0-32.0) meq/L Anion Gap (5-15) meq/L BUN (7-18) mg/dL Creatinine (0.60-1.30) mg/dL Estimated GFR (>89) mL/min Random Glucose (74-106) mg/dL Calcium (8.5-10.1) mg/dL Magnesium (1.5-2.5) mg/dL Total Bilirubin (0.2-1.0) mg/dL AST (15-37) U/L ALT (12-78) U/L Alkaline Phosphatase (45-117) U/L Ammonia 12 (11-32) mcmol/L Troponin I (0.02-0.05) ng/mL Total Protein (6.4-8.2) g/dL Albumin (3.4-5.0) g/dL TSH (0.358-3.740) uIU/mL Urine Color Yellow (Yellw/Straw) Urine Clarity Clear (Clear) Urine pH 5.0 (5.0-8.5) Ur Specific Mark [place] 1.019 (1.002-1.035) Urine Protein Negative (Neg-Trace) mg/dL Urine Glucose (UA) Negative (Negative) mg/dL Urine Ketones Negative (Negative) mg/dL Urine Occult Blood Negative (Negative) Urine Nitrate Negative (Negative) Urine Bilirubin Negative (Negative) Urine Urobilinogen Less than 2 (Less than 2) mg/dL Ur Leukocyte Esterase Negative (Negative) Urine RBC Less than 1 (0-3) /hpf Urine WBC Less than 1 (0-5) /hpf Urine Bacteria Occasional H (None) /hpf Urine Mucus Few H (Occasional) /lpf Micro UA Comment Cath-culture ind Ur Microscopic Review Not Reportable Urine Culture Comments Cath-cult indicated Imaging Data Attestation: I personally reviewed and interpreted this imaging study as follows : Radiologist's impression: Head CT 07/24/18 20:44 CONCLUSION: No acute intracranial findings. . ECG Data Attestation: I personally reviewed and interpreted this ECG as follows: Discharge Plan Discharge Disposition Patient Disposition: ED Admit(ED Internal Use Only) Discharge Condition Condition: Stable Discharge Order Discharge Orders: ED Use Only Admit Order (Routine); Ordered 07/24/18 Ordered By: Eamon Coyle Discharge Details Anticipated Discharge Date: 07/24/18 Diagnosis: Altered mental status Physicians Team ED Provider: [place],Rewadee Primary Care Provider: Primary Care MariniBethanie Rxs /Orders / Referrals /Forms Prescriptions: No Action atorvastatin 40 mg Tablet 40 mg PO HS RF: 0 ipratropium-albuterol 0.5 mg-3 mg(2.5 mg base)/3 mL Solution For Nebulization 3 ml INHALATION Q6-8H PRN (Reason: Shortness Of Breath) RF: 0 donepezil [Aricept] 5 mg Tablet 5 mg PO HS RF: 0 calcium carbonate 600 mg calcium (1,500 mg) Tablet 600 mg PO BID RF: 0 losartan 25 mg Tablet 25 mg PO DAILY RF: 0 digoxin 125 mcg Tablet 0.125 mg PO DAILY RF: 0 furosemide 20 mg Tablet 20 mg PO DAILY RF: 0 albuterol sulfate [Ventolin HFA] 90 mcg/actuation Hfa Aerosol Inhaler 2 puff INHALATION Q4-6H PRN (Reason: Shortness Of Breath) RF: 0 cholecalciferol (vitamin D3) [Vitamin D3] 400 unit Capsule 400 unit PO DAILY RF: 0 tiotropium bromide 18 mcg Capsule, W/Inhalation Device 1 cap INHALATION DAILY RF: 0 budesonide-formoterol 160-4.5 mcg/actuation Hfa Aerosol Inhaler 2 puff INHALATION BID RF: 0 rivaroxaban 20 mg Tablet 20 mg PO DAILY RF: 0 quetiapine 25 mg Tablet 12.5 mg PO BID@0900,1200 30 Days Qty: 30 RF: 0 escitalopram oxalate [Lexapro] 20 mg Tablet 20 mg PO DAILY 30 Days Qty: 30 RF: 0 nystatin 100,000 unit/mL Suspension 5 ml PO QID RF: 0 clonazepam [Klonopin] 0.5 mg Tablet 0.5 mg PO TID RF: 0 tramadol [Ultram] 50 mg Tablet 50 mg PO Q8HR PRN (Reason: Pain) RF: 0 risperidone [Risperdal] 0.5 mg Tablet 0.5 mg PO BID RF: 0 metoprolol succinate 50 mg tablet extended release 24 hr 50 mg PO DAILY RF: 0 Discharge Interventions Interventions: Discharge Planning - Case Management Last Done: 07/24/18 22:04 Status ED Status: With Doctor
[2018-07-24 21:13] LABS: Baso % (Auto) 0.3 % (0.0-2.0); Eos # (Auto) 0.3 th/mm3 (0.0-0.4); Eos % (Auto) 3.4 % (0.0-4.0); Hematocrit 41.8 % (39.0-51.0); Hemoglobin 14.2 gm/dL (13.0-17.0); Lymph # (Auto) 0.7 th/mm3 (1.0-4.8); Lymph % (Auto) 8.5 % (9.0-44.0); Mean Corpuscular HGB Conc 33.9 % (32.0-36.0); Mean Corpuscular Hemoglobin 30.6 pg (27.0-34.0); Mean Corpuscular Volume 90.3 fL (80.0-100.0); Mean Platelet Volume 8.7 fL (7.0-11.0); Mono # (Auto) 0.8 th/mm3 (0.0-0.9); Mono % (Auto) 9.8 % (0.0-8.0); Platelet Count 265 th/mm3 (150-450); Red Blood Count 4.63 mil/mm3 (4.50-5.90); Red Cell Distribution Width 14.6 % (11.6-17.2); White Blood Count 7.7 th/mm3 (4.0-11.0)
[2018-07-24 21:29] LABS: Albumin 2.4 g/dL (3.4-5.0); Anion Gap 4 meq/L (5-15); Aspartate Aminotransferase 24 U/L (15-37); Blood Urea Nitrogen 26 mg/dL (7-18); Calcium 8.7 mg/dL (8.5-10.1); Carbon Dioxide 28.6 meq/L (21.0-32.0); Chloride 109 meq/L (98-107); Glomerular Filtration Rate 86 mL/min (>89); Glucose,Random 88 mg/dL (74-106); Potassium 3.9 meq/L (3.5-5.1); Sodium 142 meq/L (136-145)
[2018-07-24 21:30] LABS: Alanine Aminotransferase 18 U/L (12-78)
[2018-07-24 21:34] LABS: Alkaline Phosphatase 56 U/L (45-117); Total Protein 7.5 g/dL (6.4-8.2)
[2018-07-24 21:53] LABS: Bacteria,Urine Occasional /hpf; Bilirubin,Urine Negative (Negative); Clarity,Urine Clear (Clear); Color,Urine Yellow (Yellw/Straw); Glucose,Urine (UA) Negative (Negative); Leukocyte Esterase,Urine Negative (Negative); Mucus,Urine Few /lpf (Occasional); Nitrite,Urine Negative (Negative); Specific Gravity,Urine 1.019 (1.002-1.035)
--- NOTE | 2018-07-24 22:00 | CT ---
EXAM DATE: 07/24/2018 9:52 PM EST AGE/SEX: 72 years / Male INDICATIONS: Altered mental status. CLINICAL DATA: This is the patient's initial encounter. Patient reports that signs and symptoms have been present for 1 day and indicates a pain score of 0/10. MEDICAL/SURGICAL HISTORY: Chronic obstructive pulmonary disease. Dementia. Hypertension. AFIB N one. RADIATION DOSE: 38.86 CTDI (mGy) COMPARISON: No prior exams available for comparison. TECHNIQUE: CT of the head without contrast. Using automated exposure control and adjustment of the mA and/or kV according to patient size, radiation dose was kept as low as reasonably achievable to ob tain optimal diagnostic quality images. DICOM format image data is available electronically for revi ew and comparison. FINDINGS: Ventricles are symmetric and normal. No abnormal extra-axial fluid accumulation, mass or hemorrhage. Nothing to suggest acute infarction. Mild fairly symmetric periventricular white matter hypodensity w hich appears benign. Extracranial structures are focally unremarkable. CONCLUSION: No acute intracranial findings. . Electronically signed by: Mundo Guthrie MD Board Certified Radiologist 07/24/2018 9:59 PM EST
[2018-07-24] MEDS ORDERED: Bisacodyl 10 MG Supp RECTAL PRN (22:44)
[2018-07-24] MEDS ORDERED: Acetaminophen 325 MG Tablet PO PRN (22:44)
--- NOTE | 2018-07-24 22:46 | P.HPIM ---
History of Present Illness Primary Care Physician: No Primary Care Physician History of Present Illness: UA minimal bacteriuria.This is a 72-year-old male with a PMH of HTN, Hyperlipidemia, COPD and h/o Dementia w/ Behavioral Disturbance who was brought to the ER for AMS. Pt unable to provide any history , per report Daughter concerned for worsening mental status, noted to be more lethargic over the last several days. On arrival, BP 126/76, HR 87, O2 sat 91% on 2L NC, Afebrile. Markable. Chemistry essentially unremarkable. Troponin negative. Ammonia normal. CT Head no acute findings. While in ER, pt noted to be lethargic. On numerous psychiatric medications per review of med list. Diagnosis (1) Encephalopathy: (2) Dementia: (3) A-fib: Review of Systems PAST FAMILY HISTORY: Unknown ROS Unobtainable: unobtainable due to mental status [facility] Medical History Medical History A-fib (Acute) Altered mental status (Acute) Atherosclerotic heart disease [place] coronary artery w/angina pectoris (Acute) COPD (chronic obstructive pulmonary disease) (Acute) Cognitive communication deficit (Acute) Dementia (Acute) Heart failure (Acute) History of placement of internal cardiac defibrillator (Acute) Hypertension (Acute) Muscle weakness (Acute) Surgical History Surgical History History of total left knee replacement (Acute) History of total right knee replacement (Acute) Social History Social History Substance History: Unable to Obtain Smoking Status: Cognitive impairment How Often Do You Have a Drink Containing Alcohol: Unable to Obtain Recent Travel in [facility] within the Last 8 Weeks: No Recent Out of Country Travel within the Last 8 Weeks: No Immunization History Tetanus Immunization: Unable to Assess Medications and Allergies Allergies Allergy/AdvReac Type Severity Reaction Status Date / Time No Known Allergies Allergy Verified 07/24/18 20:45 Home Medications Medication Instructions Recorded Confirmed Type albuterol sulfate [Ventolin HFA] 2 puff INHALATION Q4-6H PRN 06/23/18 07/24/18 History atorvastatin 40 mg PO HS 06/23/18 07/24/18 History budesonide-formoterol 2 puff INHALATION BID 06/23/18 07/24/18 History calcium carbonate 600 mg PO BID 06/23/18 07/24/18 History cholecalciferol (vitamin D3) 400 unit PO DAILY 06/23/18 07/24/18 History [Vitamin D3] digoxin 0.125 mg PO DAILY 06/23/18 07/24/18 History donepezil [Aricept] 5 mg PO HS 06/23/18 07/24/18 History furosemide 20 mg PO DAILY 06/23/18 07/24/18 History ipratropium-albuterol 3 ml INHALATION Q6-8H PRN 06/23/18 07/24/18 History losartan 25 mg PO DAILY 06/23/18 07/24/18 History rivaroxaban 20 mg PO DAILY 06/23/18 07/24/18 History tiotropium bromide 1 cap INHALATION DAILY 06/23/18 07/24/18 History clonazepam [Klonopin] 0.5 mg PO TID 07/24/18 07/24/18 History metoprolol succinate 50 mg PO DAILY 07/24/18 07/24/18 History nystatin 5 ml PO QID 07/24/18 07/24/18 History risperidone [Risperdal] 0.5 mg PO BID 07/24/18 07/24/18 History tramadol [Ultram] 50 mg PO Q8HR PRN 07/24/18 07/24/18 History Active Medications: Active Medications Atorvastatin Calcium (Lipitor) 40 mg PO HS [facility] Budesonide/Formoterol Fumarate (Symbicort 160/4.5 Mcg Inh) 2 puff INH BID [facility] Digoxin (Lanoxin) 125 mcg PO DAILY XU Donepezil HCl (Aricept) 5 mg PO HS [facility] Escitalopram Oxalate (Lexapro) 20 mg PO DAILY [facility] Metoprolol Succinate (Toprol Xl) 50 mg PO DAILY [facility] Non-Formulary Medication (Calcium Carbonate [Calcium Carbonate]) 600 mg PO BID XU Rivaroxaban (Xarelto) 20 mg PO DAILY [facility] Sodium Chloride (Ns Flush) 2 ml IV.FLUSH PRN PRN PRN Reason: FLUSH AFTER USING IV ACCESS Tiotropium [place] (Spiriva 18 Mcg Inh) mcg INH DAILY [facility] Physical Exam Vital signs: Last Vital Signs Temp 98.5 F 07/24/18 20:45 Pulse 91 H 07/24/18 20:54 Resp 32 H 07/24/18 20:45 BP 126/76 07/24/18 20:45 Pulse Ox 91 L 07/24/18 20:45 Intake & Output 07/22/18 07/23/18 07/24/18 07/25/18 06:59 06:59 06:59 06:59 Intake Total 500 / 500 Balance 500 / 500 Weight 75.841 kg Narrative: PE: GENERAL: Elderly white male, chronically ill-appearing in no acute distress, mildly lethargic but opens eyes to name. SKIN: Focused skin assessment warm and dry. HEENT: PERRLA, EOMI. No scleral icterus or conjunctival pallor. No lid lag or facial droop. CARDIOVASCULAR: Regular rate and rhythm. No obvious murmurs to auscultation. No chest tenderness to palpation. RESPIRATORY: No obvious rhonchi or wheezing. Clear to auscultation. Breath sounds equal bilaterally. GASTROINTESTINAL: Abdomen soft, non-tender, nondistended. BS normal. MUSCULOSKELETAL: Extremities without clubbing, cyanosis, or edema. No obvious deformities. NEUROLOGICAL: Lethargic, not answering questions. No focal neurologic deficits. Moving both upper and lower extremities spontaneously. PSYCHIATRIC: Appropriate mood and affect. Insight and judgment normal. Results Labs CBC & Chem 7: 07/24/18 20:50 07/24/18 20:[address] 07/24/18 20:44 CONCLUSION: No acute intracranial findings. . Caprini VTE Risk Assessment Caprini VTE Risk Assessment: No/Low Risk (score <= 1) Caprini Risk Assessment Model: Point Value = 1 Point Value = 2 Point Value = 3 Point Value = 5 Age 41-60 Minor surgery BMI > 25 kg/m2 Swollen legs Varicose veins or History of unexplained or recurrent spontaneous Oral contraceptives or hormone replacement Sepsis (< 1 month) Serious lung disease, including pneumonia (< 1 month) Abnormal pulmonary function Acute myocardial infarction Congestive heart failure (< 1 month) History of inflammatory bowel disease Medical patient at bed rest Age 61-74 Arthroscopic surgery Major open surgery (> 45 min) Laparoscopic surgery (> 45 min) Malignancy Confined to bed (> 72 hours) Immobilizing plaster cast Central venous access Age >= 75 History of VTE Family history of VTE Factor V Leiden Prothrombin [id number] Lupus anticoagulant Anticardiolipin antibodies Elevated serum homocysteine Heparin-induced thrombocytopenia Other congenital or acquired thrombophilia Stroke (< 1 month) Elective arthroplasty Hip, pelvis, or leg fracture Acute spinal cord injury (< 1 month) Prophylaxis Regimen: Total Risk Factor Score Risk Level Prophylaxis Regimen 0-1 Low Early ambulation 2 Moderate Order ONE of the following: *Sequential Compression Device (SCD) *Heparin 5000 units SQ BID 3-4 Higher Order ONE of the following medications: *Heparin 5000 units SQ TID *Enoxaparin/Lovenox 40 mg SQ daily (WT < 150 kg, CrCl > 30 mL/min) *Enoxaparin/Lovenox 30 mg SQ daily (WT < 150 kg, CrCl > 10-29 mL/min) *Enoxaparin/Lovenox 30 mg SQ BID (WT < 150 kg, CrCl > 30 mL/min) AND/OR *Sequential Compression Device (SCD) 5 or more Highest Order ONE of the following medications: *Heparin 5000 units SQ TID (Preferred with Epidurals) *Enoxaparin/Lovenox 40 mg SQ daily (WT < 150 kg, CrCl > 30 mL/min) *Enoxaparin/Lovenox 30 mg SQ daily (WT < 150 kg, CrCl > 10-29 mL/min) *Enoxaparin/Lovenox 30 mg SQ BID (WT < 150 kg, CrCl > 30 mL/min) AND *Sequential Compression Device (SCD) Assessment and Plan (1) Encephalopathy: Code(s): G93.40 - Encephalopathy, unspecified Status: Acute (2) Dementia: Code(s): F03.90 - Unspecified dementia without behavioral disturbance Status: Acute (3) A-fib: Code(s): I48.91 - Unspecified atrial fibrillation Status: Acute Plan A/P: 1. Encephalopathy: noted to have increased lethargy/confusion per daughter, pt unable to provide history, baseline unknown. CT Head w/ no acute findings. No evidence of infection/UTI. Possibly related to medication-on numerous psychiatric medications including Klonopin, Risperdal, Tramadol, Lexapro and Seroquel. Consult Psychiatry for further eval/recommendations. Neuro checks. 2. Dementia: Resume Aricept. Consult Psychiatry as above. 3. A-fib: Chronic, resume home Digoxin, Metoprolol and Xarelto. 4. DVT Prophylaxis: Xarelto 5. Social work for d/c planning as needed. 6. Case discussed w/ ER physician at length, labs/records/imaging reviewed by me.
[2018-07-25] MEDS: Sod Chloride 0.9% Inj 1,000 ML IV.CONT SCH ×3 (01:21→20:44)
[2018-07-25 07:43] LABS: Baso % (Auto) 0.3 % (0.0-2.0); Eos # (Auto) 0.2 th/mm3 (0.0-0.4); Eos % (Auto) 2.3 % (0.0-4.0); Hematocrit 38.9 % (39.0-51.0); Hemoglobin 13.2 gm/dL (13.0-17.0); Lymph # (Auto) 0.6 th/mm3 (1.0-4.8); Lymph % (Auto) 7.8 % (9.0-44.0); Mean Corpuscular Volume 91.3 fL (80.0-100.0); Mean Platelet Volume 8.8 fL (7.0-11.0); Mono # (Auto) 0.7 th/mm3 (0.0-0.9); Neut # (Auto) 6.6 th/mm3 (1.8-7.7); Neut % (Auto) 80.6 % (16.0-70.0); Platelet Count 256 th/mm3 (150-450); Red Blood Count 4.26 mil/mm3 (4.50-5.90); Red Cell Distribution Width 14.5 % (11.6-17.2); White Blood Count 8.1 th/mm3 (4.0-11.0)
[2018-07-25 08:02] LABS: Albumin 2.3 g/dL (3.4-5.0); Anion Gap 8 meq/L (5-15); Aspartate Aminotransferase 20 U/L (15-37); Blood Urea Nitrogen 25 mg/dL (7-18); Calcium 8.4 mg/dL (8.5-10.1); Carbon Dioxide 29.2 meq/L (21.0-32.0); Chloride 110 meq/L (98-107); Glomerular Filtration Rate Greater Than 89 mL/min (>89); Glucose,Random 82 mg/dL (74-106); Potassium 3.7 meq/L (3.5-5.1); Sodium 147 meq/L (136-145)
[2018-07-25 08:04] LABS: Alanine Aminotransferase 16 U/L (12-78)
[2018-07-25 08:06] LABS: Alkaline Phosphatase 55 U/L (45-117); Total Protein 6.9 g/dL (6.4-8.2)
--- NOTE | 2018-07-25 08:06 | P.PN ---
Subjective Interval history: Follow up for AMS. The patient is very soft spoken, difficult to understand, and does not answer questions appropriately. Oriented to self only. He has no specific medical complaints. He tells me he did see his doctor 3 days ago but is unsure if any medications were changed. Discussed with RN, patient is at [facility]. Physical Exam Vital signs: Vital Signs 07/24/18 20:45 07/24/18 20:54 07/25/18 00:00 Temperature 98.5 F 98.0 F Pulse Rate 87 91 H 100 H Respiratory Rate 32 H 17 Blood Pressure 126/76 103/73 Pulse Oximetry 91 L 97 07/25/18 04:00 07/25/18 07:33 Temperature 97.8 F 98.2 F Pulse Rate 87 90 Respiratory Rate 17 16 Blood Pressure 110/68 109/76 Pulse Oximetry 93 L 98 Intake & Output 07/24/18 07/25/18 07/25/18 18:59 06:59 18:59 Intake Total 500 / 500 Balance 500 / 500 Weight 77 kg Intake: Oral 0 / 0 Pre-hospital ED Only 500 / 500 Other: # Voids 2 # Incontinent Voids 2 2 Date of Last Bowel Movement 07/25/18 # Bowel Movements 2 Narrative: GENERAL: Well-nourished, well-developed thin elderly male patient in [facility]. Pleasantly confused, very soft spoken. SKIN: Warm and dry. No rash. HEENT: Normocephalic. Atraumatic. Pupils equal and round. Mucous membranes pink and moist. CARDIOVASCULAR: Regular rate and rhythm. No murmur appreciated. RESPIRATORY: No accessory muscle use. Clear to auscultation. Breath sounds equal bilaterally. GASTROINTESTINAL: Abdomen soft, non-tender, nondistended. Normoactive bowel sounds x4. MUSCULOSKELETAL: No obvious deformities. Extremities without clubbing, cyanosis , or edema. NEUROLOGICAL: Awake and alert. No obvious cranial nerve deficits. Moving all extremities spontaneously. Soft spoken, difficult to understand at times. PSYCHIATRIC: Calm mood; insight and judgment limited. - Urinary Catheter Management Straight Cath placed during this visit: yes, but has since been removed by the nurse Reason for continuing: Not indwelling catheter Insertion date: 07/24/18 Insertion time: 21:16 Removal date: 07/24/18 Removal time: 21:17 Results - Labs CBC & Chem 7: 07/25/18 05:48 07/25/18 05:48 Laboratory Results - last 24 hr 07/24/18 07/24/18 07/24/18 20:50 20:50 20:50 WBC 7.7 RBC 4.63 Hgb 14.2 Hct 41.8 MCV 90.3 MCH 30.6 MCHC 33.9 RDW 14.6 Plt Count 265 MPV 8.7 Neut % (Auto) 78.0 H Lymph % (Auto) 8.5 L [place] % (Auto) 9.8 H Eos % (Auto) 3.4 Baso % (Auto) 0.3 Neut # (Auto) 6.0 Lymph # (Auto) 0.7 L [place] # (Auto) 0.8 Eos # (Auto) 0.3 Baso # (Auto) 0.0 WBC Differential . Differential Comment Auto diff final Sodium 142 Potassium 3.9 Chloride 109 H Carbon Dioxide 28.6 Anion Gap 4 L BUN 26 H Creatinine 0.87 Estimated GFR 86 L Random Glucose 88 Calcium 8.7 Magnesium 2.0 Total Bilirubin 0.8 AST 24 ALT 18 Alkaline Phosphatase 56 Ammonia Troponin I Less than 0.02 L Total Protein 7.5 Albumin 2.4 L TSH 1.250 Urine Color Urine Clarity Urine pH Ur Specific [place] Urine Protein Urine Glucose (UA) Urine Ketones Urine Occult Blood Urine Nitrate Urine Bilirubin Urine Urobilinogen Ur Leukocyte Esterase Urine RBC Urine WBC Urine Bacteria Urine Mucus Micro UA Comment Ur Microscopic Review Urine Culture Comments 07/24/18 07/24/18 07/25/18 20:55 21:15 05:48 WBC 8.1 RBC 4.26 L Hgb 13.2 Hct 38.9 L MCV 91.3 MCH 31.0 MCHC 34.0 RDW 14.5 Plt Count 256 MPV 8.8 Neut % (Auto) 80.6 H Lymph % (Auto) 7.8 L [place] % (Auto) 9.0 H Eos % (Auto) 2.3 Baso % (Auto) 0.3 Neut # (Auto) 6.6 Lymph # (Auto) 0.6 L [place] # (Auto) 0.7 Eos # (Auto) 0.2 Baso # (Auto) 0.0 WBC Differential . Differential Comment Auto diff final Sodium Potassium Chloride Carbon Dioxide Anion Gap BUN Creatinine Estimated GFR Random Glucose Calcium Magnesium Total Bilirubin AST ALT Alkaline Phosphatase Ammonia 12 Troponin I Total Protein Albumin TSH Urine Color Yellow Urine Clarity Clear Urine pH 5.0 Ur Specific [place] 1.019 Urine Protein Negative Urine Glucose (UA) Negative Urine Ketones Negative Urine Occult Blood Negative Urine Nitrate Negative Urine Bilirubin Negative Urine Urobilinogen Less than 2 Ur Leukocyte Esterase Negative Urine RBC Less than 1 Urine WBC Less than 1 Urine Bacteria Occasional H Urine Mucus Few H Micro UA Comment Cath-culture ind Ur Microscopic Review Not Reportable Urine Culture Comments Cath-cult indicated 07/25/18 05:48 WBC RBC Hgb Hct MCV MCH MCHC RDW Plt Count MPV Neut % (Auto) Lymph % (Auto) [place] % (Auto) Eos % (Auto) Baso % (Auto) Neut # (Auto) Lymph # (Auto) [place] # (Auto) Eos # (Auto) Baso # (Auto) WBC Differential Differential Comment Sodium 147 H Potassium 3.7 Chloride 110 H Carbon Dioxide 29.2 Anion Gap 8 BUN 25 H Creatinine 0.82 Estimated GFR Greater than 89 Random Glucose 82 Calcium 8.4 L Magnesium Total Bilirubin AST 20 ALT 16 Alkaline Phosphatase Ammonia Troponin I Total Protein Albumin 2.3 L TSH Urine Color Urine Clarity Urine pH Ur Specific [place] Urine Protein Urine Glucose (UA) Urine Ketones Urine Occult Blood Urine Nitrate Urine Bilirubin Urine Urobilinogen Ur Leukocyte Esterase Urine RBC Urine WBC Urine Bacteria Urine Mucus Micro UA Comment Ur Microscopic Review Urine Culture Comments - Imaging Impressions Head CT 07/24/18 20:44 CONCLUSION: No acute intracranial findings. . Assessment and Plan - Assessment (1) Encephalopathy Code(s): G93.40 - Encephalopathy, unspecified Status: Acute (2) Dementia Code(s): F03.90 - Unspecified dementia without behavioral disturbance Status: Acute (3) A-fib Code(s): I48.91 - Unspecified atrial fibrillation Status: Acute - Plan 72-year-old male with a PMH of HTN, Hyperlipidemia, COPD and h/o Dementia w/ Behavioral Disturbance who was brought to the ER for AMS. Acute Encephalopathy, metabolic vs toxic: noted to have increased lethargy/ confusion per daughter, pt unable to provide history, patient does have dementia at baseline. -CT Head reviewed, no acute findings. -No evidence of infection/UTI. -Monitor Neuro checks -Suspect related to medication-on numerous psychiatric medications including Klonopin, Risperdal, Tramadol, Lexapro and Seroquel. -Consult Psychiatry, appreciate assistance, discontinued risperdal and clonazepam, continue on Lexapro and Seroquel -Give IVF hydration -Monitor for improvement -Consult PT/OT/ST Dementia: Chronic -Continue patient's Aricept. -Continue seroquel for mood stabilization A-fib: Chronic -resume home Digoxin, Metoprolol and Xarelto. HTN/HLD: Chronic -continue patient's losartan, statin -monitor BP, adjust antihypertensives as needed DVT Prophylaxis: on Xarelto
--- NOTE | 2018-07-25 08:36 | ECG ---
Date Performed: 07/24/2018 Time Performed: 20:55:21 PTAGE: 72 years EKG: ATRIAL FIBRILLATION WITH RAPID VENTRICULAR RESPONSE WITH ABERRANT CONDUCTION OR VENTRICULAR PREMATURE COMPLEXES INDETERMINATE AXIS INTRAVENTRICULAR CONDUCTION DELAY PREVIOUS TRACING : 06/23/2018 18.11 DOCTOR: Ricky Hines Interpretating Date/Time 07/25/2018 08:35:22
[2018-07-25] MEDS: Digoxin 125 MCG Tablet PO SCH (09:39)
[2018-07-25] MEDS: Senna/Docusate Sodium 8.6/50 MG Tablet PO SCH ×2 (09:40→20:39)
[2018-07-25] MEDS: Calcium Carbonate 500 MG Tablet PO SCH ×2 (09:40→20:39)
[2018-07-25] MEDS: Rivaroxaban 20 MG Tablet PO SCH (09:40)
[2018-07-25] MEDS: Budesonide-Formoterol 160/4.5 MCG 6 GM Inhaler INH SCH ×2 (10:00→20:47)
[2018-07-25] MEDS: Tiotropium Bromide 18 MCG/ACT Inhaler INH SCH (11:00)
--- NOTE | 2018-07-25 12:41 | P.CONPSY ---
Provisional Diagnosis Admission Date: July 24, 2018 22:56 [place] I.: Delirium due to underlying medical conditions, Dementia History of Present Illness Service: ER Primary Care Provider: No Primary Care Physician History of Present Illness: Patient is a 72-year-old man, , has 7 children, domiciled an assisted living facility, with a past psychiatric history of dementia, 1 previous psychiatric admission here at [place] exactly a month ago, documentation review, he was discharged risperidone 0.5 mg twice daily, Lexapro 20 mg, Aricept 5 mg, no previous suicide attempts, no substance use history, with a past medical significant for CHF, CAD, A. fib, HTN, COPD who was brought to the ER for AMS. Pt was initially unable to provide any history, per report Daughter concerned for worsening mental status, noted to be more lethargic over the last several days. On arrival, BP 126/76, HR 87, O2 sat 91% on 2L NC, Afebrile. Markable. Chemistry essentially unremarkable. Troponin negative. Ammonia normal. CT Head no acute findings. While in ER, pt noted to be lethargic. Patient was consulted to psychiatry to address potential psychiatric medication as a cause of current mental status. Chart reviewed. Reasons of admission now are: 1. Encephalopathy: noted to have increased lethargy/confusion per daughter, pt unable to provide history, baseline unknown. CT Head w/ no acute findings. No evidence of infection/UTI. Possibly related to medication-on numerous psychiatric medications including Klonopin, Risperdal, Tramadol, Lexapro and Seroquel. Consult Psychiatry for further eval/recommendations. Neuro checks. 2. Dementia: Resume Aricept. Consult Psychiatry as above. 3. A-fib: Chronic, resume home Digoxin, Metoprolol and Xarelto. On my psychiatric evaluation today I found the patient alert, minimally cooperative, quite superficial, but able to tell me that he feels better. Denies pain, denies distress, the patient is verbal, but very disorganized, with a prominent reality detachment, oriented in person but complete disoriented in time which is most probably part of his baseline due to his severe dementia. No suicide ideation, no homicidal ideation, no visual or auditory hallucinations at this moment. No agitation or aggressive behavior. Family psychiatric history: denies Past psychiatric history: dementia, 1 prior psychiatric admission, here he had no prior suicide attempts, no self injurious behavior. [facility] [place] Substance use history: none Past medical history: HTN, CHF, CAD, Afib, COPD Allergies: NKDA Social history: , domiciled in [facility], has 7 children. [facility] - History History Provided By: Patient - Medical History Medical History: Medical History (Last Reviewed 07/25/18 @ 09:09 by Jeffery Zarate) CHF (congestive heart failure) Major depressive disorder Schizophrenia A-fib Altered mental status Atherosclerotic heart disease [place] coronary artery w/angina pectoris COPD (chronic obstructive pulmonary disease) Cognitive communication deficit Dementia Heart failure History of placement of internal cardiac defibrillator Hypertension Muscle weakness - Surgical History Surgical History: Surgical History (Last Reviewed 07/25/18 @ 09:09 by Jeffery Zarate) History of total left knee replacement History of total right knee replacement - Tobacco History Smoking Status: Cognitive impairment - Alcohol History How Often Do You Have a Drink Containing Alcohol: Unable to Obtain - Substance Use History Substance History: Unable to Obtain - Travel History Recent Travel in the [place] Within the Last 8 Weeks: No Recent Travel Out of the Country Within the Last 8 Weeks: No - Immunization History Tetanus Immunization: Unable to Assess Medications and Allergies Active Medications: Active Medications Acetaminophen (Tylenol) 650 mg PO Q4H PRN PRN Reason: Temp > 100.4 Al Hydroxide/Mg Hydroxide (Milk Of Swathi Lucas) 30 ml PO Q12H PRN PRN Reason: Mild Constipation Atorvastatin Calcium (Lipitor) 40 mg PO HS [facility] Bisacodyl (Dulcolax Supp) 10 mg RECTAL DAILY PRN PRN Reason: SEVERE CONSITIPATION Budesonide/Formoterol Fumarate (Symbicort 160/4.5 Mcg Inh) 2 puff INH BID [facility] Last Admin: 07/25/18 10:00 Dose: 2 puff Calcium Carbonate (Oscal) 500 mg PO BID [facility] Last Admin: 07/25/18 09:40 Dose: 500 mg Digoxin (Lanoxin) 125 mcg PO DAILY [facility] Last Admin: 07/25/18 09:39 Dose: 125 mcg Donepezil HCl (Aricept) 5 mg PO HS [facility] Escitalopram Oxalate (Lexapro) 20 mg PO DAILY [facility] Last Admin: 07/25/18 09:39 Dose: 20 mg Sodium Chloride (Ns Inj) 1,000 mls @ 100 mls/hr IV.CONT .Q10H [facility] Last Admin: 07/25/18 12:05 Dose: 100 mls/hr Lactulose (Lactulose Liq) 30 ml PO DAILY PRN PRN Reason: SEVERE CONSITIPATION Metoprolol Succinate (Toprol Xl) 50 mg PO DAILY [facility] Last Admin: 07/25/18 09:39 Dose: 50 mg Ondansetron HCl (Zofran Inj) 4 mg IV.PUSH Q6H PRN PRN Reason: NAUSEA OR VOMITING Rivaroxaban (Xarelto) 20 mg PO DAILY [facility] Last Admin: 07/25/18 09:40 Dose: 20 mg Senna/Docusate Sodium (Catrachita-Colace) 1 tab PO BID [facility] Last Admin: 07/25/18 09:40 Dose: 1 tab Sennosides (Senokot) 17.2 mg PO Q12H PRN PRN Reason: Moderate Constipation Sodium Chloride (Ns Flush) 2 ml IV.FLUSH PRN PRN PRN Reason: FLUSH AFTER USING IV ACCESS Sodium Chloride (Ns Flush) 2 ml IV.FLUSH BID [facility] Last Admin: 07/25/18 09:40 Dose: 2 ml Sodium Chloride (Ns Flush) 2 ml IV.FLUSH PRN PRN PRN Reason: FLUSH AFTER USING IV ACCESS Tiotropium [employer] (Spiriva 18 Mcg Inh) 18 mcg INH DAILY [facility] Last Admin: 07/25/18 11:00 Dose: 18 mcg Allergies Allergy/AdvReac Type Severity Reaction Status Date / Time No Known Allergies Allergy Verified 07/24/18 20:45 Home Medications Medication Instructions Recorded Confirmed Type albuterol sulfate [Ventolin HFA] 2 puff INHALATION Q4-6H PRN 06/23/18 07/24/18 History atorvastatin 40 mg PO HS 06/23/18 07/24/18 History budesonide-formoterol 2 puff INHALATION BID 06/23/18 07/24/18 History calcium carbonate 600 mg PO BID 06/23/18 07/24/18 History cholecalciferol (vitamin D3) 400 unit PO DAILY 06/23/18 07/24/18 History [Vitamin D3] digoxin 0.125 mg PO DAILY 06/23/18 07/24/18 History donepezil [Aricept] 5 mg PO HS 06/23/18 07/24/18 History furosemide 20 mg PO DAILY 06/23/18 07/24/18 History ipratropium-albuterol 3 ml INHALATION Q6-8H PRN 06/23/18 07/24/18 History losartan 25 mg PO DAILY 06/23/18 07/24/18 History rivaroxaban 20 mg PO DAILY 06/23/18 07/24/18 History tiotropium bromide 1 cap INHALATION DAILY 06/23/18 07/24/18 History clonazepam [Klonopin] 0.5 mg PO TID 07/24/18 07/24/18 History metoprolol succinate 50 mg PO DAILY 07/24/18 07/24/18 History nystatin 5 ml PO QID 07/24/18 07/24/18 History risperidone [Risperdal] 0.5 mg PO BID 07/24/18 07/24/18 History tramadol [Ultram] 50 mg PO Q8HR PRN 07/24/18 07/24/18 History Exam Vital signs: Vital Signs 07/24/18 20:45 07/24/18 20:54 07/25/18 00:00 Temperature 98.5 F 98.0 F Pulse Rate 87 91 H 100 H Respiratory Rate 32 H 17 Blood Pressure 126/76 103/73 Pulse Oximetry 91 L 97 07/25/18 04:00 07/25/18 07:33 07/25/18 11:20 Temperature 97.8 F 98.2 F Pulse Rate 87 90 71 Respiratory Rate 17 16 16 Blood Pressure 110/68 109/76 112/70 Pulse Oximetry 93 L 98 96 Intake & Output 07/24/18 07/25/18 07/25/18 18:59 06:59 18:59 Intake Total 500 / 500 1000 / 1000 Balance 500 / 500 1000 / 1000 Weight 77 kg Intake: IV 1000 / 1000 NS Inj 1,000 ML @ 100 mls/hr IV 1000 / 1000 .CONT .Q10H XU Rx#:[id number] Oral 0 / 0 Pre-hospital ED Only 500 / 500 Other: # Voids 2 # Incontinent Voids 2 2 Date of Last Bowel Movement 07/25/18 # Bowel Movements 2 Mental Status Examination Appearance: Appropriate Consciousness: Alert Orientation: Person Motor Activity: Normal gait Speech: Incoherent Language: Adequate Fund of Knowledge: Poor Attention and Concentration: Adequate Memory: Impaired Mood: Appropriate Affect: Appropriate Thought Process & Associations: Loose associations Hallucination Type: None Delusion Type: None Suicidal Ideation: No Suicidal Plan: No Suicidal Intention: No Homicidal Ideation: No Homicidal Plan: No Homicidal Intention: No Insight: Poor Judgment: Poor Assessment and Plan - Assessment (1) Dementia with behavioral disturbance Code(s): F03.91 - Unspecified dementia with behavioral disturbance Status: Acute - Plan Plan: No admission is indicated. Justification for Continued Inpatient Stay: On my psychiatric evaluation today he is alert, pleasantly confused, I do not note any major distress. Reports good mood, denies suicidal and homicidal ideation, denies visual and auditory hallucinations. Just oriented in person, disoriented in time and place. Uses confabulatory statements to answer questions. But no agitation, no aggressive behavior at this moment. The patient does not seem to be oversedated at this moment. Patient has a psychiatric history of dementia with behavioral disturbances, he presented today with sedation and AMS possibly related to medication-on numerous psychiatric medications including Klonopin, Risperdal, Tramadol, Lexapro and Seroquel. Definitely, there is no indication for 2 antipsychotics at the same time. Can start Seroquel 12.5 mg twice daily, can discontinue risperidone. Discontinue clonazepam, benzodiazepine increase the risk of fall paradoxical reaction in elderly with dementia. Can continue Lexapro 20 mg. No psychiatric admission is indicated at this moment. Consult appreciated. (1) Dementia with behavioral disturbance Qualifiers: Dementia type: unspecified type Qualified Code(s): F03.91 - Unspecified dementia with behavioral disturbance
[2018-07-25] MEDS ORDERED: QUEtiapine 25 MG Tablet PO ONE (17:15)
[2018-07-25] MEDS: Nystatin Liq 500,000 UNIT/5 ML UDC PO SCH ×2 (18:09→20:41)
[2018-07-25] MEDS: QUEtiapine 25 MG Tablet PO SCH (20:35)
[2018-07-26] MEDS: Sod Chloride 0.9% Inj 1,000 ML IV.CONT SCH ×4 (03:17→14:45)
--- NOTE | 2018-07-26 07:57 | P.PN ---
Subjective Interval history: Follow up for AMS. The patient is very soft spoken and difficult to understand therefore communication is limited. The patient is oriented to self, but not place/time. He denies any specific medical complaints. RN concerned patient may still be experiencing hallucinations this morning. Vital signs reviewed and stable. Physical Exam Vital signs: Vital Signs 07/25/18 11:20 07/25/18 20:00 07/25/18 23:38 Temperature 97.3 F L 98.0 F Pulse Rate 71 92 H 74 Respiratory Rate 16 20 20 Blood Pressure 112/70 107/81 112/64 Pulse Oximetry 96 96 95 07/26/18 04:00 Temperature 97.7 F Pulse Rate 82 Respiratory Rate 20 Blood Pressure 138/62 Pulse Oximetry 93 L Intake & Output 07/25/18 07/26/18 07/26/18 18:59 06:59 18:59 Intake Total 1000 / 1000 1060 / 1060 Balance 1000 / 1000 1060 / 1060 Weight 78.1 kg Intake: IV 1000 / 1000 1000 / 1000 NS Inj 1,000 ML @ 100 mls/hr IV 1000 / 1000 1000 / 1000 .CONT .Q10H XU Rx#:[id number] Oral 60 / 60 Other: # Voids 1 # Incontinent Voids 3 Narrative: GENERAL: Thin elderly male patient in NAD. Pleasantly confused, very soft spoken. SKIN: Warm and dry. No rash. HEENT: Normocephalic. Atraumatic. Pupils equal and round. Mucous membranes pink and moist. CARDIOVASCULAR: Regular rate and rhythm. No murmur appreciated. RESPIRATORY: No accessory muscle use. Clear to auscultation. Breath sounds equal bilaterally. GASTROINTESTINAL: Abdomen soft, non-tender, nondistended. Normoactive bowel sounds x4. MUSCULOSKELETAL: No obvious deformities. Extremities without clubbing, cyanosis , or edema. NEUROLOGICAL: Awake and alert. No obvious cranial nerve deficits. Moving all extremities spontaneously. Soft spoken, difficult to understand at times. PSYCHIATRIC: Calm mood; insight and judgment limited. Questionable hallucinations. - Urinary Catheter Management Straight Cath placed during this visit: yes, but has since been removed by the nurse Reason for continuing: Not indwelling catheter Insertion date: 07/24/18 Insertion time: 21:16 Removal date: 07/24/18 Removal time: 21:17 Results - Labs CBC & Chem 7: 07/25/18 05:48 07/25/18 05:48 Laboratory Results - last 24 hr 07/25/18 05:48 Sodium 147 H Potassium 3.7 Chloride 110 H Carbon Dioxide 29.2 Anion Gap 8 BUN 25 H Creatinine 0.82 Estimated GFR Greater than 89 Random Glucose 82 Calcium 8.4 L Total Bilirubin 0.8 AST 20 ALT 16 Alkaline Phosphatase 55 Total Protein 6.9 D Albumin 2.3 L - Imaging Head CT 07/24/18 20:44 CONCLUSION: No acute intracranial findings. . Assessment and Plan - Assessment (1) Encephalopathy Code(s): G93.40 - Encephalopathy, unspecified Status: Acute (2) Dementia Code(s): F03.90 - Unspecified dementia without behavioral disturbance Status: Acute (3) A-fib Code(s): I48.91 - Unspecified atrial fibrillation Status: Acute - Plan 72-year-old male with a PMH of HTN, Hyperlipidemia, COPD and h/o Dementia w/ Behavioral Disturbance who was brought to the ER for AMS. Acute Encephalopathy, metabolic vs toxic: noted to have increased lethargy/ confusion per daughter, pt unable to provide much history, patient does have dementia at baseline. -CT Head reviewed, no acute findings. -No evidence of infection/UTI. -Monitor Neuro checks -Suspect related to medication-on numerous psychiatric medications including Klonopin, Risperdal, Tramadol, Lexapro and Seroquel. -Consult Psychiatry, appreciate assistance, discontinued risperdal and clonazepam, continue on Lexapro and Seroquel -Give IVF hydration -Monitor for improvement, slowly improving -Consult PT/OT/ST, recommending rehab, patient is a custodial care resident at [facility] Dementia: Chronic -Continue patient's Aricept. -Continue seroquel for mood stabilization A-fib: Chronic -resume home Digoxin, Metoprolol and Xarelto. HTN/HLD: Chronic -continue patient's losartan, statin -monitor BP, adjust antihypertensives as needed DVT Prophylaxis: on Xarelto Discharge Planning: Discharge pending further clinical improvement. Plan to return to [facility] at discharge.
[2018-07-26] MEDS: Nystatin Liq 500,000 UNIT/5 ML UDC PO SCH ×4 (09:47→20:18)
[2018-07-26] MEDS: Digoxin 125 MCG Tablet PO SCH (09:48)
[2018-07-26] MEDS: Calcium Carbonate 500 MG Tablet PO SCH ×2 (09:48→20:20)
[2018-07-26] MEDS: QUEtiapine 25 MG Tablet PO SCH ×2 (09:48→20:18)
[2018-07-26] MEDS: Rivaroxaban 20 MG Tablet PO SCH (09:48)
[2018-07-26] MEDS: Budesonide-Formoterol 160/4.5 MCG 6 GM Inhaler INH SCH ×2 (09:49→20:19)
[2018-07-26] MEDS: Senna/Docusate Sodium 8.6/50 MG Tablet PO SCH ×2 (09:49→20:19)
[2018-07-26] MEDS: Tiotropium Bromide 18 MCG/ACT Inhaler INH SCH (09:49)
[2018-07-27] MEDS: Sod Chloride 0.9% Inj 1,000 ML IV.CONT SCH ×3 (03:07→11:10)
--- NOTE | 2018-07-27 08:50 | P.PN ---
Subjective Interval history: Follow up for AMS, polypharmacy. The patient is initially drowsy this morning, but does awaken to voice and answers questions. He denies any specific medicla complaints. He is tolerating oral intake. RN reports patient much more awake later this morning after breakfast arrived and family present. No reported hallucinations. He has been calm and cooperative. Physical Exam Vital signs: Vital Signs 07/26/18 09:18 07/26/18 09:45 07/26/18 11:57 Temperature 97.8 F Pulse Rate 78 Respiratory Rate 16 Blood Pressure 111/73 Pulse Oximetry 100 100 95 07/26/18 16:00 07/26/18 20:00 07/27/18 00:00 Temperature 97.8 F 98.1 F 98.3 F Pulse Rate 91 H 68 89 Respiratory Rate 16 18 18 Blood Pressure 109/72 124/76 106/70 Pulse Oximetry 95 95 94 L 07/27/18 04:00 07/27/18 07:52 Temperature 98.0 F 97.7 F Pulse Rate 77 73 Respiratory Rate 19 12 Blood Pressure 128/72 118/71 Pulse Oximetry 95 97 Intake & Output 07/26/18 07/27/18 07/27/18 18:59 06:59 18:59 Intake Total 1000 / 1000 1460 / 1460 Balance 1000 / 1000 1460 / 1460 Weight 76.6 kg Intake: IV 1000 / 1000 1000 / 1000 NS Inj 1,000 ML @ 100 mls/hr IV 1000 / 1000 1000 / 1000 .CONT .Q10H XU Rx#:[id number] Oral 460 / 460 Other: # Incontinent Voids 6 # Urine Diapers 2 Date of Last Bowel Movement 07/26/18 07/26/18 # Bowel Movements 1 # Incontinent Bowel Movements 1 Narrative: GENERAL: Thin elderly male patient in NAD. Pleasantly confused, soft spoken. SKIN: Warm and dry. No rash. HEENT: Normocephalic. Atraumatic. Pupils equal and round. Mucous membranes pink and moist. CARDIOVASCULAR: Regular rate and rhythm. No murmur appreciated. RESPIRATORY: No accessory muscle use. Clear to auscultation. Breath sounds equal bilaterally. GASTROINTESTINAL: Abdomen soft, non-tender, nondistended. Normoactive bowel sounds x4. MUSCULOSKELETAL: No obvious deformities. Extremities without clubbing, cyanosis , or edema. NEUROLOGICAL: Awake and alert. No obvious cranial nerve deficits. Moving all extremities spontaneously. Soft spoken, difficult to understand at times, but answering questions appropriately. PSYCHIATRIC: Calm mood; insight and judgment limited. - Urinary Catheter Management Straight Cath placed during this visit: yes, but has since been removed by the nurse Reason for continuing: Not indwelling catheter Insertion date: 07/24/18 Insertion time: 21:16 Removal date: 07/24/18 Removal time: 21:17 Results - Labs CBC & Chem 7: 07/25/18 05:48 07/25/18 05:48 Microbiology 07/24/18 21:15 Catheterized Urine Urine Culture - Preliminary No growth in 24 hours - Imaging Head CT 07/24/18 20:44 CONCLUSION: No acute intracranial findings. . Assessment and Plan - Assessment (1) Encephalopathy Code(s): G93.40 - Encephalopathy, unspecified Status: Acute (2) Dementia Code(s): F03.90 - Unspecified dementia without behavioral disturbance Status: Acute (3) A-fib Code(s): I48.91 - Unspecified atrial fibrillation Status: Acute - Plan 72-year-old male with a PMH of HTN, Hyperlipidemia, COPD and h/o Dementia w/ Behavioral Disturbance who was brought to the ER for AMS. Acute Encephalopathy, metabolic vs toxic: noted to have increased lethargy/ confusion per daughter, pt unable to provide much history, patient does have dementia at baseline. -CT Head reviewed, no acute findings. -No evidence of infection/UTI. -Monitor Neuro checks -Strongly suspect related to polypharmacy-on numerous psychiatric medications including Klonopin, Risperdal, Tramadol, Lexapro and Seroquel. -Consult Psychiatry, appreciate assistance, discontinued risperdal and clonazepam, continue on Lexapro and low dose Seroquel -Given IVF hydration -Monitor for improvement, patient appears to be improving, more awake/alert and appropriate -Consult PT/OT/ST, recommending rehab, patient is a prison care resident at [facility], case management assisting with discharge planning Dementia: Chronic -Continue patient's Aricept. -Continue low dose seroquel for mood stabilization A-fib: Chronic -resume home Digoxin, Metoprolol and Xarelto. HTN/HLD: Chronic -continue patient's losartan, statin -monitor BP, adjust antihypertensives as needed DVT Prophylaxis: on Xarelto Discharge Planning: Patient is much improved after adjustment of psychiatric medications. Plan to discharge to SNF once arranged by case management.
[2018-07-27] MEDS: Senna/Docusate Sodium 8.6/50 MG Tablet PO SCH (08:57)
[2018-07-27] MEDS: Digoxin 125 MCG Tablet PO SCH (08:58)
[2018-07-27] MEDS: Calcium Carbonate 500 MG Tablet PO SCH (08:58)
[2018-07-27] MEDS: Rivaroxaban 20 MG Tablet PO SCH (08:58)
[2018-07-27] MEDS: Nystatin Liq 500,000 UNIT/5 ML UDC PO SCH ×3 (08:59→16:59)
[2018-07-27] MEDS: Budesonide-Formoterol 160/4.5 MCG 6 GM Inhaler INH SCH (09:00)
[2018-07-27] MEDS: Tiotropium Bromide 18 MCG/ACT Inhaler INH SCH (09:00)
[2018-07-27] MEDS: QUEtiapine 25 MG Tablet PO SCH (09:16)
[2018-07-27 12:01] VITALS: TEMP 97.6; O2SAT 95
[2018-07-27 16:05] VITALS: BP 96/60; PULSE 71; RESP 16
--- NOTE | 2018-07-28 16:11 | P.DS ---
Date of admission: 07/24/18 22:56 Primary care physician: No Primary Care Physician Attending physician on discharge: Lisa Mena Anticipated date of discharge: 07/27/18 Brief History from admission: UA minimal bacteriuria.This is a 72-year-old male with a PMH of HTN, Hyperlipidemia, COPD and h/o Dementia w/ Behavioral Disturbance who was brought to the ER for AMS. Pt unable to provide any history, per report Daughter concerned for worsening mental status, noted to be more lethargic over the last several days. On arrival, BP 126/76, HR 87, O2 sat 91% on 2L NC, Afebrile. Markable. Chemistry essentially unremarkable. Troponin negative. Ammonia normal. CT Head no acute findings. While in ER, pt noted to be lethargic. On numerous psychiatric medications per review of med list. Patient update on day of discharge: See progress note from 07/27 on day of discharge. DS: Diagnosis - Discharge Diagnosis (1) Encephalopathy Status: Acute (2) Dementia Status: Acute (3) A-fib Status: Acute DS: Medications - Discharge Medications Prescriptions: quetiapine 12.5 mg PO BID #30 tab DS: Summary Hospital Course: 72-year-old male with a PMH of HTN, Hyperlipidemia, COPD and h/o Dementia w/ Behavioral Disturbance who was brought to the ER for AMS. Acute Encephalopathy, metabolic vs toxic: noted to have increased lethargy/ confusion per daughter, pt unable to provide much history, patient does have dementia at baseline. CT Head reviewed, no acute findings. No evidence of infection/UTI. Monitored Neuro checks. Strongly suspect related to polypharmacy- on numerous psychiatric medications including Klonopin, Risperdal, Tramadol, Lexapro and Seroquel. Consult Psychiatry, appreciate assistance, discontinued risperdal and clonazepam, continue on Lexapro and low dose Seroquel. Given IVF hydration. Monitor for improvement, patient appears much improved, more awake/ alert and appropriate with conversation. Consult PT/OT/ST, recommending rehab, patient is a fdc care resident at [facility], case management assisting with discharge planning. Stable for discharge. Dementia: Chronic. Continue patient's Aricept. Continue low dose seroquel for mood stabilization A-fib: Chronic. Resume home Digoxin, Metoprolol and Xarelto. HTN/HLD: Chronic. Continue patient's losartan, statin. - Time Spent with Patient Total time spent providing and/or coordinating discharge services: Greater than 30 minutes - Quality: VTE Deep Vein Thrombosis/Pulmonary Embolism Present on Admission: No Exam Vital signs: Intake & Output 07/27/18 07/28/18 07/28/18 18:59 06:59 18:59 Intake Total 500 / 500 Balance 500 / 500 Intake: Oral 500 / 500 Other: # Voids 1 Date of Last Bowel Movement 07/26/18 Narrative: GENERAL: Thin elderly male patient in NAD. Pleasantly confused, soft spoken. SKIN: Warm and dry. No rash. HEENT: Normocephalic. Atraumatic. Pupils equal and round. Mucous membranes pink and moist. CARDIOVASCULAR: Regular rate and rhythm. No murmur appreciated. RESPIRATORY: No accessory muscle use. Clear to auscultation. Breath sounds equal bilaterally. GASTROINTESTINAL: Abdomen soft, non-tender, nondistended. Normoactive bowel sounds x4. MUSCULOSKELETAL: No obvious deformities. Extremities without clubbing, cyanosis , or edema. NEUROLOGICAL: Awake and alert. No obvious cranial nerve deficits. Moving all extremities spontaneously. Soft spoken, difficult to understand at times, but answering questions appropriately. PSYCHIATRIC: Calm mood; insight and judgment limited. Results Procedures completed during hospitalization: None. - Impressions ITS Impressions Head CT 07/24/18 20:44 CONCLUSION: No acute intracranial findings. . Discharge Plan - Discharge Disposition Patient Disposition: 03 Discharge to SNF - Discharge Condition Condition: Stable - Discharge Order Discharge Orders: Discharge Order (Routine); Ordered 07/27/18 Ordered By: Dayan Gee - Discharge Details Anticipated Discharge Date: 07/27/18 - Physicians Team Primary Care Provider: Primary Care Kirit,Bethanie Attending Provider: Jerry Mcclure Other Providers: Tom Butler MD ; [facility]
== END 2018-07-27 21:27 ==
LOC: NEDA 20:39 → NEPC 20:39 → NEPHCDU 07-25 00:27
PROVIDERS: ADMIT Internal Medicine; ATTEND Internal Medicine
CPT/HCPCS: 70450; 80053; 81001; 82140; 83735; 84443; 84484; 85025; 87086; 92610; 93005; 96360; 96361; 97162; 97166; 99285; G0195; G0378; G8987; G8988; G8996; G8997; G8998; J7030; P9612